=== PATIENT | female | born 1985 | race Caucasian/White ===

== ENCOUNTER 2020-07-26 09:11 | Outpatient (REF) | payer MEDICARE, MEDICAID, SELFPAY | END 2020-07-26 09:12 | disposition home or self-care (01) | LOC: HO.HAP 09:11 | PROVIDERS: Visit Provider Internal Medicine | DX: Z46.1 Encounter for fitting and adjustment of hearing aid (principal) | CPT/HCPCS: V5266 ==

== ENCOUNTER 2020-10-08 12:13 | Outpatient (REF) | payer MEDICAID, SELFPAY | END 2020-10-08 12:14 | disposition home or self-care (01) | LOC: HO.HAP 12:13 | PROVIDERS: Visit Provider Internal Medicine | DX: H90.3 Sensorineural hearing loss, bilateral (principal) | CPT/HCPCS: 99499 ==

== ENCOUNTER 2020-10-09 07:08 | Outpatient (REF) | payer MEDICARE, MEDICAID, SELFPAY ==
[2020-10-09 08:17] LABS: MANUAL DIFF FLAG NO
[2020-10-09 08:20] LABS: Basophils Percent Auto 1.1 % (0-2); Eosinophils Percent Auto 0.8 % (0-4); Hematocrit 40.9 % (37-47); Hemoglobin 13.8 g/dl (12.0-16.0); Imm Gran Abs Auto 0.01 X10*3/uL (0.00-0.03); Imm Gran Pct Auto 0.3 % (0.0-0.4); Lymphocytes Absolute Auto 1.5 X10*3/uL (1.2-4.9); Mean Corpuscular HGB Conc 33.7 g/dl (31.0-35.0); Mean Corpuscular Hemoglobin 34.2 pg (27.0-33.0); Mean Corpuscular Volume 101.5 fL (80-98); Mean Platelet Volume 9.4 fL (9.4-12.3); Monocytes Absolute Auto 0.3 X10*3/uL (0.1-1.2); Monocytes Percent Auto 7.7 % (2-11); Neutrophils Absolute Auto 1.8 X10*3/uL (2.0-8.3); Neutrophils Percent Auto 50.1 % (45-73); Platelet Count 226 X10*3/uL (160-400); Red Blood Count 4.03 X10*6/uL (4.20-5.50); Red Cell Distribution Width 12.2 % (11.0-16.0); White Blood Count 3.7 X10*3/uL (4.8-10.8)
[2020-10-09 08:54] LABS: Alanine Aminotransferase 16 U/L (0-31); Albumin Level 4.4 g/dL (3.5-5.0); Alkaline Phosphatase 50 U/L (39-117); Anion Gap 11 (12-20); Aspartate Amino Transferase 20 U/L (5-31); Bilirubin Total 0.5 mg/dL (0.0-1.0); Blood Urea Nitrogen 14 mg/dL (9-16); Calcium 9.1 mg/dL (8.4-10.2); Carbon Dioxide 30 mmol/L (22-29); Chloride 106 mmol/L (96-108); Cholesterol 190 mg/dL; Estimated Glomerular Filt Rate 60; Glucose Fasting 95 mg/dL (60-99); HDL Cholesterol 72 mg/dL; LDL Cholesterol Calculated 108 mg/dl; Potassium 5.1 mmol/l (3.3-5.1); Sodium 142 mmol/L (135-145); Total Protein 7.2 g/dL (6.5-8.0); Triglycerides 50 mg/dL
[2020-10-09 09:14] LABS: Vitamin D 25-OH Total 24.1 ng/mL (>30)
[2020-10-13 09:12] LABS: Levetiracetam Keppra 12.5 mcg/mL (12.0-46.0)
== END 2020-10-09 07:09 | disposition home or self-care (01) ==
LOC: HO.LAB 07:08
PROVIDERS: Absent Provider Internal Medicine Endocrinology, Diabetes & Metabolism; PCP Internal Medicine; Visit Provider Internal Medicine
DX: G40.909 Epilepsy, unspecified, not intractable, without status epilepticus (principal); E55.9 Vitamin D deficiency, unspecified; E03.9 Hypothyroidism, unspecified; Z82.49 Family history of ischemic heart disease and other diseases of the circulatory system
CPT/HCPCS: 36415; 80053; 80061; 80177; 82306; 85025

== ENCOUNTER 2020-11-09 14:34 | Outpatient (REF) | payer MEDICARE, MEDICAID, SELFPAY | END 2020-11-09 14:35 | disposition home or self-care (01) | LOC: HO.HAP 14:34 | PROVIDERS: Visit Provider Internal Medicine | DX: Z46.1 Encounter for fitting and adjustment of hearing aid (principal) | CPT/HCPCS: V5266 ==

== ENCOUNTER 2020-12-04 09:18 | Outpatient (REF) | payer MEDICARE, MEDICAID, SELFPAY ==
--- NOTE | 2020-12-05 10:50 | MHC.AU.P13 ---
Adult Audiological Evaluation Date of Visit: 12/04/20 Reason for Appointment: Audiological evaluation to monitor the status of Ms. Matos's hearing loss. She has a longstanding history of mixed hearing loss and hearing aid use. She denies any significant changes to her hearing or medical history. Due to the age of her current hearing aids, she is due for updated amplification. Previous Hearing Test Results: [facility] [place]- Mild to moderate mixed hearing loss bilaterally. Medical History: Medical History: Down Syndrome Hearing Instrument History- Right Ear: Level Vial Setter: Oticon Model: Nera 2 Pro mini BTE Serial Number: [id number] Battery Size: 312 Repair Warranty: 08/10/2017 Loss and Damage Warranty: 08/10/2017 Dispensed By: [facility] Date of Fittin07/31/2015 Hearing Instrument History- Left Ear: Level Vial Setter: Oticon Model: Nera 2 Pro mini BTE Serial Number: [id number] Battery Size: 312 Warranty: 08/10/2017 Loss and Damage Warranty: 08/10/2017 Dispensed By: [facility] Date of Fittin07/31/2015 Otoscopy: Right Ear: Unremarkable Left Ear: Unremarkable Tympanometry: Tympanometry performed due to: History of middle ear dysfunction Right Ear: Normal Middle Ear System (Type A) Left Ear: Non-compliant Middle Ear System (Type B) Hearing Evaluation: Transducer(s) Used: Insert Earphones, Bone Conduction Method: Conventional Audiometry Stimuli Used: Pure Tones Right Ear: Description of Hearing: Moderate mixed hearing loss 250-1000 Hz, moderate sensorineural hearing loss 5955-7370 Hz, rising to mild sensorineural hearing loss 5332-2688 Hz, and a moderate hearing loss at 8000 Hz. Left Ear: Description of Hearing: Moderate mixed hearing loss 250-1000 Hz, moderate sensorineural hearing loss 9683-7257 Hz, moderate mixed hearing loss at 5461-0257 Hz, and a moderately severe hearing loss at 8000 Hz. Speech Recognition Threshold (SRT): Method Used: Monitored Live Voice Stimuli Used: Spondee Words Right Ear: 45 dBHL Left Ear: 45 dBHL Word Discrimination: Method: Recorded Lists Word Lists Used: NU-6 Right Ear: 96% at 85 dBHL Left Ear: 96% at 85 dBHL Comparison: Compared to the most recent evaluation: Hearing is stable. Recommendations: Audiological re-evaluation in one year. See Hearing Aid Evaluation report for more information. Trial with updated amplification is recommended. Requesting medical clearance for hearing aid use from her PCP. Once received aids will be ordered. Diagnosis: Primary Diagnosis: H90.3 Bilateral Sensorineural Hearing Loss Services Performed: Comprehensive Audiological Evaluation (CPT 86441) Tympanometry (CPT 64607) Signature: Provider: Arpita Fontanez, CCC-A
--- NOTE | 2020-12-05 10:51 | MHC.AU.MED ---
Medical Clearance for Hearing Instrumentation Date: 12/05/20 Patient Name: Lisa Matos Date of : 1985 Referring Provider: Gaviota Kenny MD We have seen your patient on 12/05/20 and have determined that they are a candidate for amplification (See accompanying report). Specifically, they would benefit from: Hearing aid use in both ears There is a statute that addresses Medical Evaluation Requirements prior to fitting a patient with a hearing aid. According to [place] statute 265 CMR:6.03(1), (a) General. Except as provided in 265 CMR 6.03(1)(b), a workers compensation claims specialist shall not sell a hearing aid unless the prospective user has presented to the workers compensation claims specialist a written statement signed by a licensed physician that states that the patient's hearing loss has been medically evaluated and the patient may be considered a candidate for a hearing aid. The medical evaluation must have taken place within the preceding six months. Please note: Due to the [place] Statute referenced above, we cannot accept a signature other than that of a licensed physician. HADOOP ADMINISTRATOR and PA signatures cannot be accepted. I am in agreement with the above recommendation. There is no medical contraindication for hearing instrumentation. Physician Signature Date Physician Name (Printed)
--- NOTE | 2020-12-05 11:46 | MHC.AU.P13 ---
Hearing Aid Evaluation- Binaural Date of Visit: 12/05/20 Description of Hearing: Moderate mixed hearing loss bilaterally. Current Hearing Instrument Information: 2015 Oticon Nera 2 Pro miniBTE Additional Information: Given the age of her current hearing aids, Ms. Matos is due for updated amplification. Binaural hearing aids are recommended to facilitate improved communication. She would benefit from the Bluetooth capabilities in new hearing aids as she has been attending her community program via zoom meetings on a tablet. Hearing Instrument Selection: Right Ear: Surveillance Monitor: Phonak Model: Gregor M70-M Battery Size: 312 Color: Q2 Electric Green Type of Mold: Microsonic Skeleton molds Left Ear: Surveillance Monitor: Phonak Model: Gregor M70-M Battery Size: 312 Color: Q2 Electric Green Type of Mold: Microsonic Skeleton Plan: Plan of Care for Hearing Instrument Fitting: Patient wishes to purchase hearing aids as prescribed Action Taken/Action Needed: Earmold Impressions Taken. Medical Clearance to be requested from PCP/ENT. Hearing Fitting to be scheduled when materials arrive Comments: Aids will be ordered once MD clearance is received. Diagnosis Code(s): Primary Diagnosis: H90.3 Bilateral Sensorineural Hearing Loss Signature: Provider: Arpita Fontanez, CCC-A
== END 2020-12-04 09:19 | disposition home or self-care (01) ==
LOC: HO.SH 09:18
PROVIDERS: Visit Provider Internal Medicine
DX: Z46.1 Encounter for fitting and adjustment of hearing aid (principal); H90.3 Sensorineural hearing loss, bilateral
CPT/HCPCS: 92557; 92567; 92591; 92593; 99499; V5275

== ENCOUNTER 2020-12-11 10:29 | Outpatient (REF) | payer MEDICARE, MEDICAID, SELFPAY ==
[2020-12-11 12:26] LABS: Basophils Absolute Auto 0.1 X10*3/uL (0.0-0.2); Eosinophils Percent Auto 0.4 % (0-4); Hematocrit 39.6 % (37-47); Hemoglobin 13.3 g/dl (12.0-16.0); Imm Gran Abs Auto 0.01 X10*3/uL (0.00-0.03); Imm Gran Pct Auto 0.4 % (0.0-0.4); Lymphocytes Percent Auto 41.1 % (20-40); MANUAL DIFF FLAG SCAN; Mean Corpuscular HGB Conc 33.6 g/dl (31.0-35.0); Mean Corpuscular Volume 101.3 fL (80-98); Mean Platelet Volume 9.4 fL (9.4-12.3); Monocytes Absolute Auto 0.3 X10*3/uL (0.1-1.2); Monocytes Percent Auto 11.8 % (2-11); Neutrophils Absolute Auto 1.1 X10*3/uL (2.0-8.3); Neutrophils Percent Auto 44.3 % (45-73); Platelet Count 234 X10*3/uL (160-400); Red Blood Count 3.91 X10*6/uL (4.20-5.50); Red Cell Distribution Width 13.3 % (11.0-16.0); SCAN SMEAR FLAG 1
[2020-12-11 12:33] LABS: White Blood Count 2.5 X10*3/uL (4.8-10.8)
[2020-12-11 12:55] LABS: SLIDE REVIEW VERIFIED
[2020-12-11 13:33] LABS: Folate 16.2 ng/mL (> or = 4.0); Vitamin B12 405 pg/mL (200-900)
== END 2020-12-11 10:30 | disposition home or self-care (01) ==
LOC: HO.10HDL 10:29
PROVIDERS: Visit Provider Internal Medicine
DX: D72.819 Decreased white blood cell count, unspecified (principal); R71.8 Other abnormality of red blood cells
CPT/HCPCS: 36415; 82607; 82746; 85025; 85060

== ENCOUNTER → 2020-12-26 14:17 | Outpatient (BNV) | payer MEDICARE, MEDICAID, SELFPAY | PROVIDERS: PCP Internal Medicine; Referring Provider Internal Medicine; Visit Provider Internal Medicine | DX: D72.819 Decreased white blood cell count, unspecified (principal); Q90.9 Down syndrome, unspecified | CPT/HCPCS: 99203; 99213; 99214 ==

== ENCOUNTER 2021-01-02 09:22 | Outpatient (REF) | payer MEDICARE, MEDICAID, SELFPAY | END 2021-01-02 09:23 | disposition home or self-care (01) | LOC: HO.HAP 09:22 | PROVIDERS: Visit Provider Internal Medicine | DX: Z46.1 Encounter for fitting and adjustment of hearing aid (principal); H90.6 Mixed conductive and sensorineural hearing loss, bilateral | CPT/HCPCS: V5011; V5020; V5160; V5261; V5264; V5266 ==

== ENCOUNTER 2021-01-17 15:12 | Outpatient (REF) | payer MEDICARE, MEDICAID, SELFPAY | END 2021-01-17 15:13 | disposition home or self-care (01) | LOC: HO.HAP 15:12 | PROVIDERS: Visit Provider Internal Medicine | DX: Z13.89 Encounter for screening for other disorder (principal) ==

== ENCOUNTER 2021-04-15 13:24 | Outpatient (REF) | payer MEDICARE, MEDICAID, SELFPAY | END 2021-04-15 13:25 | disposition home or self-care (01) | LOC: HO.HAP 13:24 | PROVIDERS: Visit Provider Internal Medicine | DX: Z46.1 Encounter for fitting and adjustment of hearing aid (principal); H90.3 Sensorineural hearing loss, bilateral | CPT/HCPCS: V5266 ==

== ENCOUNTER 2021-06-06 14:14 | Outpatient (REF) | payer SELFPAY | END 2021-06-06 14:15 | disposition home or self-care (01) | LOC: HO.HAP 14:14 | PROVIDERS: Visit Provider Internal Medicine | DX: H90.3 Sensorineural hearing loss, bilateral (principal) | CPT/HCPCS: 92700 ==

== ENCOUNTER 2021-07-01 07:48 | Outpatient (REF) | payer MEDICARE, SELFPAY ==
[2021-07-01 11:09] LABS: Alanine Aminotransferase 15 U/L (0-31); Albumin Level 4.3 g/dL (3.5-5.0); Alkaline Phosphatase 51 U/L (39-117); Anion Gap 12 (12-20); Aspartate Amino Transferase 17 U/L (5-31); Bilirubin Total 0.9 mg/dL (0.0-1.0); Blood Urea Nitrogen 15 mg/dL (9-16); Calcium 9.7 mg/dL (8.4-10.2); Carbon Dioxide 28 mmol/L (22-29); Chloride 105 mmol/L (96-108); Estimated Glomerular Filt Rate 55; Glucose Fasting 95 mg/dL (60-99); Potassium 4.5 mmol/L (3.3-5.1); Sodium 140 mmol/L (135-145); Total Protein 7.4 g/dL (6.5-8.0)
[2021-07-05 19:01] LABS: Levetiracetam Keppra 12.9 mcg/mL (12.0-46.0)
[2021-07-06 13:12] LABS: Vitamin D 25-OH, D2 <4 ng/mL; Vitamin D 25-OH, D3 48 ng/mL; Vitamin D 25-OH, Total 48 ng/mL (30-100)
== END 2021-07-01 07:49 | disposition home or self-care (01) ==
LOC: HO.10HDL 07:48
PROVIDERS: Visit Provider Internal Medicine
DX: R56.9 Unspecified convulsions (principal); E06.3 Autoimmune thyroiditis; E55.9 Vitamin D deficiency, unspecified
CPT/HCPCS: 36415; 80053; 80177; 82306; 84443

== ENCOUNTER 2021-07-03 12:07 | Outpatient (REF) | payer MEDICARE, MEDICAID, SELFPAY ==
--- NOTE | 2021-07-03 13:27 | MHC.AU.P13 ---
Hearing Instrument Problem Date of Visit: 07/03/21 Right Ear: Metal Control Worker: Phonak Model: Gregor M70-M Serial Number: [id number] Repair Warranty: 03/12/2026 Loss and Damage Warranty: 03/12/2026 Service Plan: Battery Size: 312 Color: Q2 Electric Green Adjunct Business Instructor: Tubin T double bend Type of Dome: Type of Mold: Microsonic Skeleton molds Type of Wax Guard: Dispensed By: [facility] Date of Fittin01/02/21 Left Ear: Metal Control Worker: Phonak Model: Gregor M70-M Serial Number: [id number] Repair Warranty: 03/12/2026 Loss and Damage Warranty: 03/12/2026 Service Plan: Battery Size: 312 Color: Q2 Electric Green Adjunct Business Instructor: Tubin T double bend Type of Dome: Type of Mold: Microsonic Skeleton Type of Wax Guard: Dispensed By: [facility] Date of Fittin01/02/2021 Summary: Patient dropped off older right Oticon hearing aid - not working - wax in tubing. XIAO cleaned and tubing changed - now amplifying clearly. Diagnosis Code(s): Primary Diagnosis: H90.6 Mixed Hearing Loss, Bilateral Signature: Provider: RISHI Bowden-HIS
== END 2021-07-03 12:08 | disposition home or self-care (01) ==
LOC: HO.HAP 12:07
PROVIDERS: Visit Provider Internal Medicine
DX: Z13.89 Encounter for screening for other disorder (principal)

== ENCOUNTER 2021-07-04 15:50 | Outpatient (REF) | payer MEDICARE, MEDICAID, SELFPAY | END 2021-07-04 15:51 | disposition home or self-care (01) | LOC: HO.HAP 15:50 | PROVIDERS: Visit Provider Internal Medicine | DX: Z13.89 Encounter for screening for other disorder (principal) ==

== ENCOUNTER 2021-09-30 13:40 | Outpatient (REF) | payer MEDICARE, MEDICAID, SELFPAY | END 2021-09-30 13:41 | disposition home or self-care (01) | LOC: HO.HAP 13:40 | PROVIDERS: Visit Provider Internal Medicine | DX: Z46.1 Encounter for fitting and adjustment of hearing aid (principal); H90.6 Mixed conductive and sensorineural hearing loss, bilateral | CPT/HCPCS: V5266 ==

== ENCOUNTER 2021-10-09 13:25 | Outpatient (REF) | payer MEDICARE, MEDICAID, SELFPAY | END 2021-10-09 13:26 | disposition home or self-care (01) | LOC: HO.HAP 13:25 | PROVIDERS: Visit Provider Internal Medicine | DX: Z13.89 Encounter for screening for other disorder (principal) ==

== ENCOUNTER 2021-10-29 12:24 | Outpatient (REF) | payer MEDICARE, MEDICAID, SELFPAY | END 2021-10-29 12:25 | disposition home or self-care (01) | LOC: HO.HAP 12:24 | PROVIDERS: Visit Provider Internal Medicine | DX: Z13.89 Encounter for screening for other disorder (principal) ==

== ENCOUNTER 2021-12-11 16:00 | Outpatient (REF) | payer MEDICARE, MEDICAID, SELFPAY | END 2021-12-11 16:01 | disposition home or self-care (01) | LOC: HO.HAP 16:00 | PROVIDERS: Visit Provider Internal Medicine | DX: Z46.1 Encounter for fitting and adjustment of hearing aid (principal); H90.3 Sensorineural hearing loss, bilateral | CPT/HCPCS: V5266 ==

== ENCOUNTER 2022-01-30 08:28 | Outpatient (REF) | payer MEDICARE, MEDICAID, SELFPAY ==
--- NOTE | 2022-01-31 07:54 | MHC.AU.AHA ---
Adult Audiological Evaluation Date of Visit: 01/30/22 Reason for Appointment: Long-standing history of hearing loss and middle ear dysfunction. Patient arrives today to determine if there has been a change in hearing. Previous Hearing Test Results: At this clinic on 11/29/2019- Overall moderate mixed hearing loss bilaterally Ear History: Recent Ear Pain: None Reported Family History of Hearing Loss?: Recent Ear Infections: None Reported History of Ear Wax Buildup: Both Ears Previous Ear Surgery: PE tubes, TM repair Medical History: Medical History: Down Syndrome Hearing Instrument History- Right Ear: Electronic Gluing Machine Operator: Phonak Model: Gregor M70-M Serial Number: [id number] Battery Size: 312 Repair Warranty: 03/12/2026 Loss and Damage Warranty: 03/12/2026 Dispensed By: [facility] Date of Fittin01/02/21 Hearing Instrument History- Left Ear: Electronic Gluing Machine Operator: SimGymak Model: Gregor M70-M Serial Number: [id number] Battery Size: 312 Warranty: 03/12/2026 Loss and Damage Warranty: 03/12/2026 Dispensed By: [facility] Date of Fittin01/02/2021 Otoscopy: Right Ear: Partially occluded with cerumen Left Ear: Partially occluded with cerumen Tympanometry: Tympanometry performed due to: History of middle ear dysfunction Right Ear: Normal Middle Ear System (Type A) Left Ear: Non-compliant Middle Ear System (Type B) Hearing Evaluation: Transducer(s) Used: Insert Earphones Method: Conventional Audiometry Stimuli Used: Pure Tones Right Ear: Description of Hearing: Moderate mixed hearing loss bilaterally Left Ear: Description of Hearing: Moderate mixed hearing loss bilaterally Speech Recognition Threshold (SRT): Method Used: Recorded Lists Stimuli Used: Spondee Words Right Ear: 45 dBHL Left Ear: 45 dBHL Word Discrimination: Method: Recorded Lists Word Lists Used: W-22 Right Ear: 100% at 85 dBHL Left Ear: 100% at 85 dBHL Most Comfortable Level (MCL): Right Ear: 85 dBHL Left Ear: 85 dBHL Comparison: Compared to the most recent evaluation: Hearing is stable. Recommendations: Audiological re-evaluation in one year. Hearing aid maintenance performed today. See Hearing Aid Follow-Up note for more information. Diagnosis: Primary Diagnosis: H90.6 Mixed Hearing Loss, Bilateral Signature: Provider: Arpita Fernando CCC-A
--- NOTE | 2022-01-31 07:55 | MHC.AU.HFU ---
Hearing Instrument Follow-Up- Binaural Date of Visit: 01/30/22 Right Ear: Inside Account Executive: Phonak Model: Gregor M70-M Serial Number: [id number] Repair Warranty: 03/12/2026 Loss and Damage Warranty: 03/12/2026 Battery Size: 312 Dispensed By: [facility] Date of Fittin01/02/21 Left Ear: Inside Account Executive: Phonak Model: Gregor M70-M Serial Number: [id number] Repair Warranty: 03/12/2026 Loss and Damage Warranty: 03/12/2026 Battery Size: 312 Dispensed By: [facility] Date of Fittin01/02/2021 Follow-Up Summary: Patient was seen for audiological re-evaluation (see separate report for details). Her current and previous 2 sets of hearing aids were cleaned. Molds were retubed. All hearing aids are amplifying clearly. No programming changes were necessary today. Recommendations: Hearing instrument follow-up or maintenance as needed. Diagnosis Code(s): Primary Diagnosis: H90.6 Mixed Hearing Loss, Bilateral Signature: Provider: Arpita Fernando, [facility]
== END 2022-01-30 08:29 | disposition home or self-care (01) ==
LOC: HO.SH 08:28
PROVIDERS: Visit Provider Internal Medicine
DX: Z01.118 Encounter for examination of ears and hearing with other abnormal findings (principal); Z46.1 Encounter for fitting and adjustment of hearing aid; H90.3 Sensorineural hearing loss, bilateral; H61.23 Impacted cerumen, bilateral
CPT/HCPCS: 92557; 92567; 92593

== ENCOUNTER 2022-02-27 14:42 | Outpatient (REF) | payer MEDICARE, MEDICAID, SELFPAY | END 2022-02-27 14:43 | disposition home or self-care (01) | LOC: HO.HAP 14:42 | PROVIDERS: Visit Provider Internal Medicine | DX: Z46.1 Encounter for fitting and adjustment of hearing aid (principal); H90.6 Mixed conductive and sensorineural hearing loss, bilateral | CPT/HCPCS: V5266 ==

== ENCOUNTER 2022-05-12 15:16 | Outpatient (REF) | payer MEDICARE, MEDICAID, SELFPAY | END 2022-05-12 15:17 | disposition home or self-care (01) | LOC: HO.HAP 15:16 | PROVIDERS: Visit Provider Internal Medicine | DX: Z46.1 Encounter for fitting and adjustment of hearing aid (principal); H90.6 Mixed conductive and sensorineural hearing loss, bilateral | CPT/HCPCS: V5266 ==

== ENCOUNTER 2022-06-25 07:38 | Outpatient (REF) | payer MEDICARE, MEDICAID, SELFPAY ==
[2022-06-25 10:34] LABS: MANUAL DIFF FLAG NO
[2022-06-25 10:51] LABS: Basophils Absolute Auto 0.1 X10*3/uL (0.0-0.2); Basophils Percent Auto 1.9 % (0-2); Eosinophils Percent Auto 1.3 % (0-4); Hematocrit 41.1 % (37.0-47.0); Hemoglobin 13.8 g/dl (12.0-16.0); Imm Gran Abs Auto 0.02 X10*3/uL (0.00-0.03); Imm Gran Pct Auto 0.6 % (0.0-0.4); Lymphocytes Absolute Auto 1.4 X10*3/uL (1.2-4.9); Lymphocytes Percent Auto 45.1 % (20-40); Mean Corpuscular HGB Conc 33.6 g/dl (31.0-35.0); Mean Corpuscular Hemoglobin 34.2 pg (27.0-33.0); Mean Platelet Volume 9.2 fL (9.4-12.3); Monocytes Absolute Auto 0.3 X10*3/uL (0.1-1.2); Neutrophils Absolute Auto 1.2 x10*3/uL (2.0-8.3); Neutrophils Percent Auto 40.1 % (45-73); Platelet Count 250 X10*3/uL (160-400); Red Blood Count 4.03 X10*6/uL (4.20-5.50); Red Cell Distribution Width 13.1 % (11.0-16.0); White Blood Count 3.1 X10*3/uL (4.8-10.8)
[2022-06-25 11:21] LABS: Thyroid Stimulating Hormone 3.45 uIU/mL (0.32-4.0)
[2022-07-02 18:02] LABS: Levetiracetam Keppra 17.3 mcg/mL (6.0-46.0)
[2022-07-03 14:37] LABS: Vitamin D 25-OH, D2 <4 ng/mL; Vitamin D 25-OH, D3 63 ng/mL; Vitamin D 25-OH, Total 63 ng/mL (30-100)
== END 2022-06-25 07:39 | disposition home or self-care (01) ==
LOC: HO.10HDL 07:38
PROVIDERS: Absent Provider Internal Medicine Endocrinology, Diabetes & Metabolism; Visit Provider Internal Medicine
DX: R56.9 Unspecified convulsions (principal); D64.9 Anemia, unspecified; E55.9 Vitamin D deficiency, unspecified; E06.3 Autoimmune thyroiditis; E03.9 Hypothyroidism, unspecified
CPT/HCPCS: 36415; 80177; 82306; 84443; 85025

== ENCOUNTER 2022-07-29 09:29 | Outpatient (REF) | payer MEDICARE, MEDICAID, SELFPAY | END 2022-07-29 09:30 | disposition home or self-care (01) | LOC: HO.HAP 09:29 | PROVIDERS: Visit Provider Internal Medicine | DX: Z46.1 Encounter for fitting and adjustment of hearing aid (principal); H90.3 Sensorineural hearing loss, bilateral; H61.23 Impacted cerumen, bilateral | CPT/HCPCS: 92593 ==

== ENCOUNTER 2022-10-07 11:10 | Outpatient (REF) | payer MEDICARE, MEDICAID, SELFPAY | END 2022-10-07 11:11 | disposition home or self-care (01) | LOC: HO.HAP 11:10 | PROVIDERS: Visit Provider Internal Medicine | DX: Z46.1 Encounter for fitting and adjustment of hearing aid (principal); H90.3 Sensorineural hearing loss, bilateral; H61.23 Impacted cerumen, bilateral | CPT/HCPCS: V5266 ==

== ENCOUNTER 2023-01-06 10:06 | Outpatient (REF) | payer MEDICARE, MEDICAID, SELFPAY | END 2023-01-06 10:07 | disposition home or self-care (01) | LOC: HO.HAP 10:06 | PROVIDERS: Visit Provider Internal Medicine | DX: Z46.1 Encounter for fitting and adjustment of hearing aid (principal); H90.3 Sensorineural hearing loss, bilateral; H61.23 Impacted cerumen, bilateral | CPT/HCPCS: V5266 ==

== ENCOUNTER → 2023-01-27 14:06 | Outpatient (BNVA) | payer MEDICARE, MEDICAID, SELFPAY | PROVIDERS: PCP Internal Medicine; Visit Provider Advanced Practice Midwife | DX: Z01.419 Encounter for gynecological examination (general) (routine) without abnormal findings (principal); R10.9 Unspecified abdominal pain; R11.10 Vomiting, unspecified; R19.7 Diarrhea, unspecified | CPT/HCPCS: 99212 ==

== ENCOUNTER 2023-06-30 11:37 | Outpatient (REF) | payer MEDICARE, MEDICAID, SELFPAY | END 2023-06-30 11:38 | disposition home or self-care (01) | LOC: HO.HAP 11:37 | PROVIDERS: Visit Provider Internal Medicine | DX: Z46.1 Encounter for fitting and adjustment of hearing aid (principal); H90.3 Sensorineural hearing loss, bilateral; H61.23 Impacted cerumen, bilateral | CPT/HCPCS: V5266 ==

== ENCOUNTER 2023-07-07 07:48 | Outpatient (AMB) | payer MEDICARE, MEDICAID, SELFPAY ==
[2023-07-07 07:57] VITALS: BP 102/60; BMI 20.8
--- NOTE | 2023-07-07 07:57 | MHC.PC.OV ---
Vital Signs 07/07/23 07:57 Height 4 ft 10 in Weight 99 lb 6 oz BMI 20.8 BP 102/60 Blood Pressure Location Rt brachial Position Sitting Intake Visit Reasons: leukopenia, thyroid Intake Note: Patient here for a follow up Leukopenia, thyroid Valet Service Attendant Required: No Accompanied by: Mother Allergies No Known Allergies Allergy (Verified 07/07/23 08:07) Medication List - Last Reconciled 07/07/23 by Gaviota Kenny MD calcium carbonate (Tums) 200 mg PO BID cholecalciferol (vitamin D3) 25 mcg PO DAILY 90 days levetiracetam 250 mg PO DIRECTED levothyroxine 75 mcg PO DAILY omega-3 fatty acids (Fish Oil Concentrate) 1,000 mg PO DAILY varenicline (Tyrvaya) 1 spray intranasal BID Tobacco use date assessed: 02/04/23 Dental Screening Dental Screen Date: 07/07/23 Did you have a dental visit in the last 12 months?: Yes Did you have a dental problem in the last 6 months where you did not have access to dental care?: No Was dental information given to patient?: Patient has dentist HPI HPI Comments History of Present Illness Details This is a 38-year-old female with Down syndrome, seizures, autoimmune thyroiditis and low vitamin-D that comes accompanied by mother for follow-up on her conditions. Seizures are follow by Neurology and Keppra was decreased due to leukopenia. Has not had a seizure in over a month. Thyroiditis is follow by Endocrinology. On vitamin-D supplements for low vitamin-D. Her leukopenia is follow by Hematology-Oncology and her last ANC was over a 1000. She has not had any opportunistic infection recently. No fever or cough. No chest pain or shortness of breath. She is very active. [facility] Medical History Hypovitaminosis D Leukopenia Down syndrome Autoimmune thyroiditis Hearing loss Seizures Surgical History History of placement of ear tubes History of ear surgery Family History Father Melanoma Mother Hyperthyroidism Maternal Grandfather Diabetes CVD (cardiovascular disease) Brother In good health Social History Household Members: Family Household Members Other:: lives w/her mom Housing: House Alcohol intake: never Patient Tobacco Use Status: Never used Tobacco e-Cigarette/Vaping Use: Never Used Second Hand Smoke Exposure: No service: No Current occupational status: employed Current occupational exposures/hazards: No Cognitive needs: No Hearing needs: No Vision needs: Yes Questionnaire Thrive Questionnaire Date Thrive assessed: 11/05/22 JAGRUTI-7 AMB Questionnaire JAGRUTI-7 Date JAGRUTI - 7 assessed: 11/05/22 Source: Developed by Drs. Dustin Bassett, Bette Garcia, Noe Ayala and colleagues, with an educational bree from [employer]. Review of Systems Const All systems reviewed & are unremarkable except as noted in HPI and below Eyes Reports no additional complaints, Denies change in vision and Denies other visual disturbances Card Denies chest pain at rest, Denies chest pain with activity, Denies edema, Denies irregular heart rhythm, Denies claudication, Denies dyspnea, Denies dyspnea on exertion, Denies orthopnea, Denies paroxysmal nocturnal dyspnea and Denies slow heart rate Resp Denies cough, Denies dyspnea and Denies dyspnea on exertion GI Denies abdominal pain, Denies change in bowel habits, Denies excessive flatus, Denies nausea and Denies vomiting Denies urinary incontinence, Denies urinary hesitancy and Denies urinary urgency Musc Denies abnormal gait, Denies atrophy, Denies deformity and Denies limited range of motion Skin/Breast Denies bleeding lesions, Denies changing lesions and Denies rash Neuro Denies abnormal gait and Denies lack of coordination Physical exam (Primary Care) Vital Signs: Last Vital Signs BP 102/60 07/07/23 07:57 BMI result Body Mass Index 20.8 Tobacco/Smoking Status: Tobacco use Status Tobacco use date assessed 02/04/23 07/07/23 07:58 Patient Tobacco Use Status Never used Tobacco 07/07/23 07:58 e-Cigarette/Vaping Use Never Used 07/07/23 07:58 Thrive Assessment: Date of Thrive Assessment Date Thrive assessed 11/05/22 07/07/23 07:58 Eyes General: appearance normal, both eyes and all related structures Eyelids: Yes eyelids normal Conjunctivae: conjunctivae normal Neck Neck: Yes normal visual inspection and Yes supple Resp Effort & Inspection: normal respiratory effort Auscultation: clear to auscultation bilaterally Cardio Jugular venous distension: no JVD Rate: regular rate Rhythm: regular rhythm Heart sounds: S1 normal heart sound present and S2 normal heart sound present Extrem General: Yes full ROM Assessment and Plan Assessment & Plan (1) Seizures: Code(s): R56.9 - Unspecified convulsions Plan: Continue Keppra. Follow-up with Neurology. (2) Autoimmune thyroiditis: Code(s): E06.3 - Autoimmune thyroiditis Plan: Continue levothyroxine. Follow-up with endocrinology. (3) Leukopenia: Code(s): D72.819 - Decreased white blood cell count, unspecified Qualifiers: Leukopenia type: neutropenia Neutropenia type: other Qualified Code(s): D70.8 - Other neutropenia Plan: Follow-up with Hematology-Oncology. (4) Hypovitaminosis D: Code(s): E55.9 - Vitamin D deficiency, unspecified Plan: Continue vitamin-D supplement Coding Level of Care Code Est Pt Level 4 (30785) Diagnoses Seizures R56.9 Autoimmune thyroiditis E06.3 Other neutropenia D70.8 Leukopenia type: neutropenia Neutropenia type: other Hypovitaminosis D E55.9 Time Spent (min) 20
== END 2023-07-07 08:26 | disposition home or self-care (01) ==
PROVIDERS: Visit Provider Internal Medicine
DX: R56.9 Unspecified convulsions (principal); E06.3 Autoimmune thyroiditis; D70.8 Other neutropenia; E55.9 Vitamin D deficiency, unspecified
CPT/HCPCS: 99214

== ENCOUNTER 2023-07-21 13:12 | Outpatient (AMB) | payer MEDICARE, MEDICAID, SELFPAY ==
--- NOTE | 2023-07-21 13:19 | A.OFFVIS_ITS ---
Intake Vital Signs 07/21/23 13:20 Height 4 ft 10 in Weight 97 lb BMI 20.3 BP 100/60 Intake Visit Reasons: Pap smear/60 mins Intake Note: The patient agreed to use of a director medical safety during this encounter. Scribed for PUSHPA Spaulding by Lisandra Potter director medical safety, on 07/21/2023 at 1:49 pm EST. Anglesmith Helper: Anglesmith Helper Present (Sanna) Accompanied by: Mother Allergies No Known Allergies Allergy (Verified 07/07/23 08:07) HPI HPI Comments History of Present Illness Details She is here with her mom Mary for a pelvic exam and pap smear due to not being able to obtain at last visit due to her anxiety. Reports regular monthly menses. She took a Benadryl for her visit today to help her relax and remain calm. [facility] Medical History Visit for pelvic exam Hypovitaminosis D Leukopenia Down syndrome Autoimmune thyroiditis Hearing loss Seizures Surgical History History of placement of ear tubes History of ear surgery Family History Father Melanoma Mother Hyperthyroidism Maternal Grandfather Diabetes CVD (cardiovascular disease) Brother In good health Social History Household Members: Family Household Members Other:: lives w/her mom Housing: House Alcohol intake: never Patient Tobacco Use Status: Never used Tobacco e-Cigarette/Vaping Use: Never Used Second Hand Smoke Exposure: No service: No Current occupational status: employed Current occupational exposures/hazards: No Cognitive needs: No Hearing needs: No Vision needs: Yes Female Reproductive History Menstrual Total pregnancies: 0 Date of last pap smear: 12/30/16 (neg pap and hpv) Physical Exam Vital Signs: Last Vital Signs BP 100/60 07/21/23 13:20 BMI result Body Mass Index 20.3 Const Other: anxious, cried with the discussion of examination General: cooperative, healthy appearing, comfortable, no acute distress, well developed, alert and awake Other: very limited exam, pt. tensing legs/abdomen, limited view of cervix, bimanual not completed despite coaching and support, pt. not able to cooperate fully. External Female Exam: normal external appearance and normal appearance of the urethra Speculum Exam - Vagina: normal appearance of the vagina and normal vaginal discharge Speculum Exam - Cervix: normal appearance of the cervix (limited view of entire surface due to pt. pulling away ) Assessment & Plan Assessment & Plan (1) Visit for pelvic exam: Code(s): Z01.419 - Encounter for gynecological examination (general) (routine) without abnormal findings Plan: Discussed: Pap smear obtained. All of her questions and concerns were addressed to the best of my ability and shared decision making. She is agreeable to plan of care. Orders: Orders Pap Smear Today Z01.419 - Encounter for gynecological examination (general) (routine) without abnormal findings Coding Level of Care Code Est Pt Level 3 (37802) Diagnoses Visit for pelvic exam Z01.419
[2023-07-21 13:20] VITALS: BP 100/60; BMI 20.3
== END 2023-07-21 15:33 | disposition home or self-care (01) ==
PROVIDERS: Visit Provider Advanced Practice Midwife
DX: Z01.419 Encounter for gynecological examination (general) (routine) without abnormal findings (principal)
CPT/HCPCS: Q0091

== ENCOUNTER 2023-07-21 13:12 | Outpatient (REF) | payer MEDICARE, MEDICAID, SELFPAY ==
[2023-07-23 23:43] LABS: HPV mRNA E6/E7 rflx Not Detected (Not Detected)
== END 2023-07-21 13:13 | disposition home or self-care (01) ==
LOC: HO.LNP 13:12
PROVIDERS: Visit Provider Advanced Practice Midwife
DX: Z01.419 Encounter for gynecological examination (general) (routine) without abnormal findings (principal); F41.9 Anxiety disorder, unspecified
CPT/HCPCS: 87624; 88142

== ENCOUNTER 2023-07-22 14:41 | Outpatient (REF) | payer MEDICARE, MEDICAID, SELFPAY | END 2023-07-22 14:42 | disposition home or self-care (01) | LOC: HO.HAP 14:41 | PROVIDERS: Visit Provider Internal Medicine | DX: Z13.89 Encounter for screening for other disorder (principal) ==

== ENCOUNTER 2023-11-10 10:05 | Outpatient (REF) | payer MEDICARE, MEDICAID, SELFPAY | END 2023-11-10 10:06 | disposition home or self-care (01) | LOC: HO.HAP 10:05 | PROVIDERS: Visit Provider Internal Medicine | DX: Z46.1 Encounter for fitting and adjustment of hearing aid (principal); H90.3 Sensorineural hearing loss, bilateral; H61.23 Impacted cerumen, bilateral | CPT/HCPCS: V5266 ==

== ENCOUNTER 2023-12-22 14:56 | Outpatient (REF) | payer MEDICARE, MEDICAID, SELFPAY | END 2023-12-22 14:57 | disposition home or self-care (01) | LOC: HO.HAP 14:56 | PROVIDERS: Visit Provider Internal Medicine | DX: Z13.89 Encounter for screening for other disorder (principal) ==

== ENCOUNTER 2024-02-02 11:34 | Outpatient (REF) | payer MEDICARE, MEDICAID, SELFPAY | END 2024-02-02 11:35 | disposition home or self-care (01) | LOC: HO.HAP 11:34 | PROVIDERS: Visit Provider Internal Medicine | DX: Z13.89 Encounter for screening for other disorder (principal) ==

== ENCOUNTER 2024-02-09 07:35 | Outpatient (AMB) | payer MEDICARE, MEDICAID, SELFPAY ==
--- NOTE | 2024-02-09 07:45 | A.OFFVIS_ITS ---
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 Accompanied by: Mother Allergies No Known Allergies Allergy (Verified 02/09/24 07:52) Medication List - Last Reconciled 02/09/24 by Gaviota Kenny MD calcium carbonate (Tums) 200 mg PO BID cholecalciferol (vitamin D3) 25 mcg PO DAILY 90 days levetiracetam 250 mg PO DIRECTED levothyroxine 75 mcg PO DAILY omega-3 fatty acids (Fish Oil Concentrate) 1,000 mg PO DAILY varenicline (Tyrvaya) 1 spray intranasal BID Do you need a note to return to daycare/school/sports/work: No HPI HPI Comments History of Present Illness Details This is a 38-year-old female with Down syndrome and seizures that comes accompanied by mother which is the sandblast operator for her Medicare annual wellness exam. She has hearing aids for hearing loss. Has not had a seizure in years and is follow by Neurology. PPP handed to patient. Family history of coronary artery disease and lipid panel will be order. No chest pain or shortness of breath. No change in bowel or bladder habits. No fever or cough. Able to walk with no assistive device. [facility] Medical History (Updated 02/09/24 @ 08:24 by Gaviota Kenny MD) Visit for pelvic exam Hypovitaminosis D Leukopenia Down syndrome Autoimmune thyroiditis Hearing loss Seizures Surgical History History of placement of ear tubes History of ear surgery Family History Father Melanoma Mother Hyperthyroidism Maternal Grandfather Diabetes CVD (cardiovascular disease) Brother In good health Social History Household Members: Family Household Members Other:: lives w/her mom Housing: House Alcohol intake: never Patient Tobacco Use Status: Never used Tobacco e-Cigarette/Vaping Use: Never Used Second Hand Smoke Exposure: No service: No Current occupational status: employed Current occupational exposures/hazards: No Cognitive needs: No Hearing needs: No Vision needs: Yes Questionnaire Medicare Wellness Checkup What gender do you identify with?: female During the past 4 weeks, how much have you been bothered by emotional problems such as feeling anxious, depressed, irritable, sad or downhearted, and blue?: slightly During the past 4 weeks, has your physical & emotional health limited your social activities with family, friends, neighbors, or groups?: not at all During the past 4 weeks, how much bodily pain have you generally had?: very mild pain During the past 4 weeks, was someone available to help you if you needed & wanted help?: yes, as much as I wanted During the past 4 weeks, what was the hardest physical activity you could do for at least 2 minutes?: heavy Can you get to places out of walking distance without help? (For eg., can you travel alone on buses, taxis or drive your car?): Yes Can you go shopping for groceries or clothes without someone's help?: Yes Can you prepare your own meals?: Yes Can you do your housework without help?: Yes Because of any health problems, do you need the help of another person with your personal care needs such as eating, bathing, dressing or getting around the house?: No Can you handle your own money without help?: Yes During the past 4 weeks, how would you rate your health in general?: excellent During the past 4 weeks how have things been going for you?: very well; could hardly better Are you having difficulties driving your car?: not applicable, I don't use a car Do you always fasten your seat belt when you are in a car?: yes, usually During past 4 weeks, have you been bothered by the following: never: Sexual problems?, Trouble eating well?, Teeth or denture problems? and Problems using the telephone? and seldom: Falling or dizzy when standing up and Tiredness or fatigue? Have you fallen 2 or more times in the past year?: No Are you afraid of falling?: No Are you a smoker?: no During the past 4 weeks, how many drinks of wine, beer, or other alcoholic beverages did you have?: no alcohol at all Do you exercise for about 20 minutes 3 or more times a week?: yes, most of the time Have you been given information to help with the following?: yes: Hazards in your house that might hurt you? and yes: Keeping track of your medications? How often do you have trouble taking medicines the way you have been told to take them?: I always take medicine as prescribed How confident are you that you can control & manage most of your health problems?: very confident What is your race?: White Mini Mental State Exam (MMSE) Orientation What is the (year) (season) (date) (day) (month)?: year, season, date, day and month Where are we (state) (county) (town or city) (hospital) (floor)?: state, county, town or city, hospital/clinic and floor Registration Name of 3 unrelated objects clearly and slowly, then ask patient to repeat all 3 of them. (1st repeat determines score. Make sure they can repeat all three): object 1, object 2 and object 3 Attention & Calculation (CHOOSE ONE) Spell WORLD backwards (DLROW): 0 letters Recall Ask patient to repeat the 3 items from question #3.: object 1, object 2 and object 3 Language Show patient a wristwatch & ask what it is. Repeat for pencil.: watch and pencil Ask the patient to repeat the phrase 'No ifs, ands, or buts' after you.: correct Ask the patient to 'take a piece of paper with their right hand' 'fold paper in half' 'place paper on floor': take paper in right hand, fold paper in half and place paper on floor Print the sentence 'CLOSE YOUR EYES' on a piece. If patient actually closes eyes then score.: followed written direction Give patient a blank piece of paper & ask to write a sentence. Score if it contains a noun & verb.: sentence contains subject and verb Score Score: 24 Activity of Daily Living Bathing - sponge bath, tub bath or shower: receives no assistance (gets in/out by self, if usual bathing means Dressing - getting clothes from closets & drawers, including inner/outer garments & fasteners.: gets clothes & gets completely dressed without help Toileting - going to the 'toilet room' for urine/bowel elimination & cleaning self/arranging clothes: goes to toilet room, cleans self, arranges clothes without help Transfer: moves in & out of bed and chair without help (may use support object) Continence: controls urination/bowel movements completely by self Feeding: feeds self without help Total Score: 0 Information obtained from: patient Using telephone: independent Traveling: needs assistance Shopping: independent Preparing meals: independent Housework: independent Taking medicine: independent Managing money: needs assistance PHQ-9 Over the last 2 weeks, how often have you been bothered by any of the following problems? 1. Little interest or pleasure in doing things: not at all 2. Feeling down, depressed, or hopeless: not at all 3. Trouble falling or staying asleep, or sleeping too much: not at all 4. Feeling tired or having little energy: several days 5. Poor appetite or overeating: not at all 6. Feeling bad about yourself - or that you are a failure or have let yourself or your family down: not at all 7. Trouble concentrating on things, such as reading the newspaper or watching television: not at all 8. Moving or speaking so slowly that other people could have noticed. Or the opposite - being so fidgety or restless that you have been moving around a lot more than usual: not at all 9. Thoughts that you would be better off or of hurting yourself in some way: not at all Total score: 1 Depression Screening Interpretation: Negative Depression Screening Done: Yes 72532 - PHQ-9 Billing: Yes Source: Developed by Drs. Dustin Bassett, Bette Garcia, Noe Ayala and colleagues, with an educational bree from [employer]. AUDIT C Alcohol Use Questionnaire (AUDIT-C) 1. How often do you have a drink containing alcohol?: Never Total Score: 0 Thrive Questionnaire Date Thrive assessed: 02/09/24 I am a: Patient What is your living situation today?: I have a steady place to live Within the past 12 months, did the food you bought not last and you didn't have the money to get more?: Never true Within the past 12 months, did you worry whether your food would run out before you got money to buy more?: Never true Do you have trouble paying for medicines?: No Do you have trouble getting transportation to medical appointments?: No Do you have trouble paying your heating and electricity bill?: No Do you have trouble taking care of your child, family member or friend?: No Do you have trouble with day-to-day activities such as bathing, preparing meals, shopping, managing finances, etc.?: No Are you currently unemployed and looking for a job?: No Are you interested in more education?: No Please select the resources that you would like help with: None Currently or been in a relationship where the following occur: no concerns reported THRIVE Score: 0 JAGRUTI-7 AMB Questionnaire JAGRUTI-7 Date JAGRUTI - 7 assessed: 02/09/24 Feeling nervous, anxious, or on edge: 0 = Not at all Not being able to stop or control worryin = Not at all Worrying too much about different things: 0 = Not at all Trouble relaxin = Not at all Being so restless that it is hard to sit still: 0 = Not at all Becoming easily annoyed or irritable: 0 = Not at all Feeling afraid as if something awful might happen: 0 = Not at all Total JAGRUTI-7 score (0-4 normal; 5-9 mild; 10-14 moderate; 15-21 severe): 0 Source: Developed by Drs. Dustin Bassett, Bette Garcia, Noe Ayala and colleagues, with an educational bree from [employer]. JAGRUTI-7 Assessment Billing JAGRUTI-7 Assessment Tool: JAGRUTI-7 Assessment 82304 Review of Systems Const All systems reviewed & are unremarkable except as noted in HPI and below Card Denies chest pain at rest, Denies chest pain with activity, Denies edema, Denies irregular heart rhythm, Denies claudication, Denies dyspnea, Denies dyspnea on exertion, Denies orthopnea, Denies paroxysmal nocturnal dyspnea and Denies slow heart rate Resp Denies cough, Denies dyspnea and Denies dyspnea on exertion GI Denies abdominal pain, Denies change in bowel habits, Denies excessive flatus, Denies nausea and Denies vomiting Denies urinary incontinence, Denies urinary hesitancy and Denies urinary urgency Musc Denies abnormal gait, Denies atrophy, Denies deformity and Denies limited range of motion Neuro Denies abnormal gait, Denies behavioral changes and Denies lack of coordination Psych Denies behavioral changes Physical Exam Vital Signs: Last Vital Signs BP 102/60 02/09/24 07:49 BMI result Body Mass Index 20.0 Const Orientation/consciousness: patient oriented x3 Resp Effort & Inspection: normal respiratory effort Auscultation: clear to auscultation bilaterally Cardio Jugular venous distension: no JVD Rate: regular rate Rhythm: regular rhythm Heart sounds: S1 normal heart sound present and S2 normal heart sound present Neuro General: patient oriented x3 Romberg Test: Negative Extrem General: Yes full ROM Psych Appearance: grossly normal Assessment & Plan Assessment & Plan (1) Encounter for Medicare annual wellness exam: Code(s): Z00.00 - Encounter for general adult medical examination without abnormal findings Plan: Repeat in a year. (2) Seizures: Code(s): R56.9 - Unspecified convulsions Plan: Continue Keppra. Orders: Orders Lipid Panel Today Z82.49 - Family history of ischemic heart disease and other diseases of the circulatory system Comprehensive [place]. Panel Fast Today R56.9 - Unspecified convulsions Quality Reporting (2019) Depression/Bipolar (159/160/161/177) PHQ-9: Total score: 1 Coding Level of Care Code Medicare Subsequent (G0439) Diagnoses Encounter for Medicare annual wellness exam Z00.00 Seizures R56.9 CPT Codes Advance Care Planning - Time spent: 1-15 minutes, on File ([id number]) Additional Codes JAGRUTI-7 Assessment Billing - JAGRUTI-7 Assessment Tool: JAGRUTI-7 Assessment 71360 ([id number]) Time Spent (min) 35 Advance Care Planning Advance Care Planning discussion: Completed/Scanned Date of discussion: 02/09/24 Who was present: Mother, patient and me Forms completed: Health Care Proxy Time spent: 1-15 minutes, on File Actual minutes spent: 1
[2024-02-09 07:49] VITALS: BP 102/60
== END 2024-02-09 08:20 | disposition home or self-care (01) ==
PROVIDERS: Visit Provider Internal Medicine
DX: Z00.00 Encounter for general adult medical examination without abnormal findings (principal); R56.9 Unspecified convulsions
CPT/HCPCS: 1123F; G0439

== ENCOUNTER 2024-02-16 09:30 | Outpatient (REF) | payer MEDICARE, MEDICAID, SELFPAY ==
[2024-02-16 11:48] LABS: Alanine Aminotransferase 14 U/L (0-31); Albumin Level 4.3 g/dL (3.5-5.0); Alkaline Phosphatase 46 U/L (39-117); Anion Gap 15 (12-20); Aspartate Amino Transferase 18 U/L (5-31); Bilirubin Total 0.7 mg/dL (0.0-1.0); Blood Urea Nitrogen 16 mg/dL (9-16); Calcium 9.7 mg/dL (8.4-10.2); Carbon Dioxide 26 mmol/L (22-29); Chloride 105 mmol/L (96-108); Cholesterol 224 mg/dL (<200); Estimated Glomerular Filt Rate > 60; Glucose Fasting 93 mg/dL (60-99); Glucose Random 92 mg/dL (60-115); HDL Cholesterol 75 mg/dL (>40); LDL Cholesterol Calculated 135 mg/dL (<100); Potassium 4.3 mmol/L (3.3-5.1); Sodium 142 mmol/L (135-145); Total Protein 7.5 g/dL (6.5-8.0); Triglycerides 72 mg/dL (<150); Vitamin D 25-OH Total 76.6 ng/mL (>30)
[2024-02-19 18:03] LABS: Levetiracetam Keppra 7.1 mcg/mL (6.0-46.0)
== END 2024-02-16 09:31 | disposition home or self-care (01) ==
LOC: HO.LAB 09:30
PROVIDERS: PCP Internal Medicine; Visit Provider Internal Medicine
DX: R56.9 Unspecified convulsions (principal); E55.9 Vitamin D deficiency, unspecified
CPT/HCPCS: 36415; 80053; 80061; 80177; 82306

== ENCOUNTER 2024-05-10 09:32 | Outpatient (REF) | payer MEDICARE, MEDICAID, SELFPAY | END 2024-05-10 09:33 | disposition home or self-care (01) | LOC: HO.HAP 09:32 | PROVIDERS: Visit Provider Internal Medicine | DX: Z46.1 Encounter for fitting and adjustment of hearing aid (principal); H90.3 Sensorineural hearing loss, bilateral; H61.23 Impacted cerumen, bilateral | CPT/HCPCS: V5266 ==

== ENCOUNTER 2024-07-06 08:48 | Outpatient (REF) | payer MEDICARE, MEDICAID, SELFPAY ==
--- NOTE | 2024-07-07 10:59 | MHC.AU.HA3 ---
Hearing Instrument Follow-Up- Binaural Date of Visit: 07/05/24 Right Ear: Isaak, Model, Color, Serial Number: Neto Hope 70-M SN: [id number] Color: Electric Green Parts Department Manager Repair Warranty: 03/12/2026 Parts Department Manager Loss and Damage Warranty: 03/12/2026 Battery Size: 312 Earmold/Dome/CShell/SlimTip:Microsonic Skeleton molds Dispensed By: [facility] Date of Fittin01/02/2021 Left Ear: Isaak, Model, Color, Serial Number: Neto Hope 70-M SN: [id number] Color: Electric Green Parts Department Manager Repair Warranty: 03/12/2026 Parts Department Manager Loss and Damage Warranty: 03/12/2026 Battery Size: 312 Earmold/Dome/CShell/SlimTip: Microsonic Skeleton Dispensed By: [facility] Date of Fittin01/02/2021 Follow-Up Summary: Dropped off old Wise HAs reporting not working. Tubes occluded with wax. Cleaned both hearing aids and ear molds. Vacuumed microphones. Ran through dehumidifier. Replaced tubing. Listening check demonstrated HAs amplifying clearly. 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 HAs in Repair Drawer. Recommendations:Hearing instrument follow-up or maintenance as needed. Please contact our clinic with any questions or concerns. Diagnosis Code(s): Primary Diagnosis: H90.3 Bilateral Sensorineural Hearing Loss Signature: Provider: Gracie Babin, [facility]
== END 2024-07-06 08:49 | disposition home or self-care (01) ==
LOC: HO.HAP 08:48
PROVIDERS: Visit Provider Internal Medicine
DX: Z13.89 Encounter for screening for other disorder (principal)

== ENCOUNTER 2024-07-12 07:17 | Outpatient (REF) | payer MEDICARE, MEDICAID, SELFPAY ==
--- NOTE | ~2024-07-12 | MR_ITS ---
EXAMINATION: MR BRAIN WITHOUT CONTRAST CLINICAL INFORMATION: Seizure disorder COMPARISON: None available. TECHNIQUE: MRI of the brain was obtained using routine sequences without contrast. FINDINGS: No restricted diffusion. Hippocampi demonstrated no signal abnormality or volume loss. No acute intracranial hemorrhage, mass effect, midline shift, hydrocephalus or herniation. Prominent Virchow-Lucien spaces, right subcapsular. Posterior cranial fossa contents demonstrated no signal abnormality or mass effect. Flow-void signal within the main cerebral vessels is normal demonstrated, prominent right ICA terminus. Sellar/suprasellar region demonstrated a 6 mm and 3 6 slightly hyperintense T1 signal in the sella turcica Craniocervical junction is intact and normal.. MR/MR head/brain wo con IMPRESSION: No acute brain abnormality. Questionable, Rathke cleft cyst, intrasellar Small aneurysm, right ICA terminus cannot be excluded. Recommend MRA brain versus CT angiogram brain. Electronically signed by: Blair Mota MD 08/16/2024 03:35 PM EST
== END 2024-07-12 07:18 | disposition home or self-care (01) ==
LOC: HO.MRI 07:17
PROVIDERS: Visit Provider Psychiatry & Neurology Neurology
DX: G40.909 Epilepsy, unspecified, not intractable, without status epilepticus (principal)
CPT/HCPCS: 70551

== ENCOUNTER → 2024-07-12 07:40 | Outpatient (BNV) | payer MEDICARE, MEDICAID, SELFPAY | PROVIDERS: Visit Provider Radiology Diagnostic Radiology | DX: R56.9 Unspecified convulsions (principal) | CPT/HCPCS: 70551 ==

== ENCOUNTER 2024-07-12 09:50 | Outpatient (REF) | payer MEDICARE, MEDICAID, SELFPAY | END 2024-07-12 09:51 | disposition home or self-care (01) | LOC: HO.HAP 09:50 | PROVIDERS: Visit Provider Internal Medicine | DX: Z46.1 Encounter for fitting and adjustment of hearing aid (principal); H90.3 Sensorineural hearing loss, bilateral | CPT/HCPCS: 92593; 99499 ==

== ENCOUNTER 2024-08-16 07:39 | Outpatient (AMB) | payer MEDICARE, MEDICAID, SELFPAY ==
--- NOTE | 2024-08-16 07:31 | A.OFFPC_ITS ---
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 Accompanied by: Mother Allergies No Known Allergies Allergy (Verified 08/16/24 07:54) Medication List - Last Reconciled 08/16/24 by Gaviota Kenny MD calcium carbonate (Tums) 200 mg PO BID cholecalciferol (vitamin D3) 25 mcg PO DAILY 90 days levetiracetam 250 mg PO DIRECTED levothyroxine 75 mcg PO DAILY omega-3 fatty acids (Fish Oil Concentrate) 1,000 mg PO DAILY varenicline (Tyrvaya) 1 spray intranasal BID Tobacco use date assessed: 02/04/23 Dental Screening Dental Screen Date: 07/07/23 HPI HPI Comments History of Present Illness Details This is a 39-year-old female with Down syndrome that comes accompanied by mother which is the production engineer for follow-up on her conditions. She has neutropenia, autoimmune thyroiditis, seizures and low vitamin-D. Neutropenia was evaluated by Hematology-Oncology which did not find any abnormality. Down syndrome patients tend to have low white blood cells. I autoimmune thyroiditis is follow by Endocrinology and has been stable. Has not had a seizure in over 3 months and this is follow by Neurology. MRI of the brain done but results are still pending. On vitamin-D supplements for her low vitamin-D. Denies any chest pain or shortness on breath. No acute complaints. [facility] Medical History (Updated 08/16/24 @ 08:11 by Gaviota Kenny MD) Visit for pelvic exam Hypovitaminosis D Leukopenia Down syndrome Autoimmune thyroiditis Hearing loss Seizures Surgical History History of placement of ear tubes History of ear surgery Family History Father Melanoma Mother Hyperthyroidism Maternal Grandfather Diabetes CVD (cardiovascular disease) Brother In good health Social History (Updated 08/16/24 @ 07:58 by Gaviota Kenny MD) Household Members: Family Household Members Other:: lives w/her mom Housing: House Alcohol intake: current Alcohol intake frequency: holidays/special occasions only Patient Tobacco Use Status: Never used Tobacco e-Cigarette/Vaping Use: Never Used Second Hand Smoke Exposure: No service: No Current occupational status: employed Current occupational exposures/hazards: No Cognitive needs: No Hearing needs: No Vision needs: Yes Questionnaire Thrive Questionnaire Date Thrive assessed: 08/16/24 I am a: Patient What is your living situation today?: I have a steady place to live Within the past 12 months, did the food you bought not last and you didn't have the money to get more?: Never true Within the past 12 months, did you worry whether your food would run out before you got money to buy more?: Never true Do you have trouble paying for medicines?: No Do you have trouble getting transportation to medical appointments?: No Do you have trouble paying your heating and electricity bill?: No Do you have trouble taking care of your child, family member or friend?: No Do you have trouble with day-to-day activities such as bathing, preparing meals, shopping, managing finances, etc.?: No Are you currently unemployed and looking for a job?: No Are you interested in more education?: No Please select the resources that you would like help with: None Currently or been in a relationship where the following occur: No concerns reported THRIVE Score: 0 AUDIT C Alcohol Use Questionnaire (AUDIT-C) 1. How often do you have a drink containing alcohol?: Monthly or less 2. How many drinks containing alcohol do you have on a typical day when you are drinking?: 1 or 2 3. How often do you have six or more drinks on one occasion?: Never Total Score: 1 Score Reviewed/Action Taken: No JAGRUTI-7 AMB Questionnaire JAGRUTI-7 Date JAGRUTI - 7 assessed: 08/16/24 Feeling nervous, anxious, or on edge: 0 = Not at all Not being able to stop or control worryin = Not at all Worrying too much about different things: 0 = Not at all Trouble relaxin = Not at all Being so restless that it is hard to sit still: 0 = Not at all Becoming easily annoyed or irritable: 0 = Not at all Feeling afraid as if something awful might happen: 0 = Not at all Total JAGRUTI-7 score (0-4 normal; 5-9 mild; 10-14 moderate; 15-21 severe): 0 Source: Developed by Drs. Dustin Bassett, Bette Garcia, Noe Ayala and colleagues, with an educational bree from [employer]. JAGRUTI-7 Assessment Billing JAGRUTI-7 Assessment Tool: JAGRUTI-7 Assessment 22730 Review of Systems Const All systems reviewed & are unremarkable except as noted in HPI and below Card Denies chest pain at rest, Denies chest pain with activity, Denies edema, Denies irregular heart rhythm, Denies claudication, Denies dyspnea, Denies dyspnea on exertion, Denies orthopnea, Denies paroxysmal nocturnal dyspnea and Denies slow heart rate Resp Denies cough, Denies dyspnea and Denies dyspnea on exertion Denies urinary incontinence, Denies urinary hesitancy and Denies urinary urgency Physical exam (Primary Care) Vital Signs: Last Vital Signs BP 102/62 08/16/24 07:47 BMI result Body Mass Index 20.1 Tobacco/Smoking Status: Tobacco use Status Tobacco use date assessed 02/04/23 08/16/24 07:32 Patient Tobacco Use Status Never used Tobacco 08/16/24 07:32 e-Cigarette/Vaping Use Never Used 08/16/24 07:32 Thrive Assessment: Date of Thrive Assessment Date Thrive assessed 08/16/24 08/16/24 07:51 Currently or been in a relationship where the following occur: No concerns reported Resp Effort & Inspection: normal respiratory effort Auscultation: clear to auscultation bilaterally Cardio Jugular venous distension: no JVD Rate: regular rate Rhythm: regular rhythm Heart sounds: S1 normal heart sound present and S2 normal heart sound present Neuro General: no focal motor deficits Extrem General: Yes full ROM Coding Level of Care Code Est Pt Level 4 (43544) Complex EM visit Add On G2211 Diagnoses 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 (2) Hypovitaminosis D: Code(s): E55.9 - Vitamin D deficiency, unspecified Category: Medical Plan: Continue vitamin-D supplements. (3) Autoimmune thyroiditis: Code(s): E06.3 - Autoimmune thyroiditis Category: Medical Plan: Continue levothyroxine. Monitor TSH. Follow-up with endocrinology. (4) Seizures: Code(s): R56.9 - Unspecified convulsions Category: Medical Plan: Continue Keppra. Follow-up with Neurology. Orders: Orders Comprehensive [place]. Panel Fast 6 Months R56.9 - Unspecified convulsions Vitamin D 25-OH Total 6 Months E55.9 - Vitamin D deficiency, unspecified Lipid Panel 6 Months E78.5 - Hyperlipidemia, unspecified
[2024-08-16 07:47] VITALS: BP 102/62; BMI 20.1
== END 2024-08-16 08:06 | disposition home or self-care (01) ==
PROVIDERS: PCP Internal Medicine; Visit Provider Internal Medicine
DX: D70.0 Congenital agranulocytosis (principal); E55.9 Vitamin D deficiency, unspecified; E06.3 Autoimmune thyroiditis; R56.9 Unspecified convulsions

== ENCOUNTER → 2024-08-16 07:39 | Outpatient (BNVA) | payer MEDICARE, MEDICAID, SELFPAY | PROVIDERS: PCP Internal Medicine; Visit Provider Internal Medicine | DX: D70.0 Congenital agranulocytosis (principal); E55.9 Vitamin D deficiency, unspecified; E06.3 Autoimmune thyroiditis; E56.9 Vitamin deficiency, unspecified | CPT/HCPCS: 96127; 99212 ==

== ENCOUNTER 2024-09-13 10:03 | Outpatient (REF) | payer MEDICARE, MEDICAID, SELFPAY ==
--- OUTSIDE RECORDS SUMMARY | 2024-09-14 19:41 | XMS_ITS | Continuity of Care Document ---
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 Onset: 07/01/2022 Social History Type Date Description Comments Sex Unknown Lives With Mother ETOH Use Rarely consumes alcohol Tobacco Use Start: Unknown Patient has never smoked Allergies and adverse reactions Description No Known Drug Allergies Medications Active Medications SIG Qnty Indications Order ing Provider Date Ldyhfvlzddtcx817bt Tablets Take 1/2 Tablet By Mouth Twice A Day Finesse Gonzalez MD Sodium Fluoride 5000 PPM Sensitive1.1-5% Gel [place] Once AT Night Spit Out Excess DO Not Rinse Keep Out Of Reach Of Children Unknown [id number] (1000 Ut) Capsules Take 1 Capsule By Mouth Every Day Gaviota Rocha Levothyroxine Ugawsq48lzc Tablets Take 1 Tablet By Mouth Mon Through Sat Only 72tabs Irene Sanchez M.D. Fish Oil [id number] Capsules 1 by mouth every day Irene Sanchez M.D. Wqwgyfw100sp Tablets 1 by mouth every day 30tabs Irene Sanchez M.D. Vital Signs Date Vital Result Comment 07/21/2023 9:42am BP Systolic 112 mmHg BP Diastolic 58 mmHg Heart Rate 71 /min Height 58 inches 4'10 Weight 101.38 lb BMI (Body Mass Index) 21.2 kg/m2 Results Test Acquired Date Facility Test Result H/L Range [place] Laboratory test finding 10/26/2023 [facility] TSH With Reflex To FT4 <pending> Laboratory test finding 10/26/2023 [facility] TSH With Reflex To FT4 0.43 uIU/mL (0.4-4.2) Laboratory test finding 07/22/2023 [facility] TSH With Reflex To FT4 <pending> Laboratory test finding 07/21/2023 [facility] TSH With Reflex To FT4 6.88 uIU/mL High (0.4-4.2) Free T4 1.32 ng/dL (0.70-1.80 ) Laboratory test finding 07/01/2022 [facility] TSH W/Reflex To Free T4 <pending> Procedures Date Code Description Status 07/21/2023 10312 Collection Of Venous Blood B y Venipuncture Completed Medical Devices Description No Information Available Encounters Type Date Location Provider Dx Diagnosis Office Visit 07/21/2023 10:15a Main Office Irene Sanchez M.D. E03.9 Hypothyroidism, unspecified Assessments Date Code Description Provider 10/26/2023 E03.9 Hypothyroidism, unspecified Irene Sanchez M.D. 07/22/2023 E03.9 Hypothyroidism, unspecified Irene Sanchez M.D. 07/21/2023 E03.9 Hypothyroidism, unspecified Irene Sanchez M.D. Plan of Treatment Future Appointment(s):* 11/09/2024 9:00 am - Irene Sanchez M.D. at Main Office 07/01/2022 - Irene Sanchez M.D.* E03.9 Hypothyroidism, unspecified* New Labs:* TSH W/Reflex To Free T4, Ordered: 07/01/22 Functional Status Description No Information Available Mental Status Description No Information Available Referrals Description No Information Available
== END 2024-09-13 10:04 | disposition home or self-care (01) ==
LOC: HO.HAP 10:03
PROVIDERS: PCP Internal Medicine; Visit Provider Internal Medicine
DX: Z46.1 Encounter for fitting and adjustment of hearing aid (principal); H90.3 Sensorineural hearing loss, bilateral; H61.23 Impacted cerumen, bilateral
CPT/HCPCS: V5266

== ENCOUNTER 2024-12-20 09:46 | Outpatient (REF) | payer MEDICARE, MEDICAID, SELFPAY ==
--- OUTSIDE RECORDS SUMMARY | 2024-12-20 10:56 | XMS_ITS | Clinical Summary ---
Author Organization [facility] Address [address] [place] [address] Phone Care Team Providers Care Chemical Preparer Name Role Phone Georgina Arredondo MD Primary Care Provider Unava ilable Immunizations Immunization Administration Dates Next Due DTP 12/24/1989, 7,01/20/1986,1985,1985 Hep B, ped/adol 07/20/1997,03/20/1997,01/19/1997 Hib (HbOC) 08/10/1987 MMR 01/19/1997,10/13/1986 OPV 12/24/1989, 7,1985,1984 Td (adult) ([facility]), 5 Lf t etanus toxoid, PF, adsorbed 12/17/1998 Family History Relation Name Status Comments Brother Alive Brother: Alive and well Father Alive Father: Cancer - Maternal Grandfather Materna l grandfather: Obesity, Diabetes mellitus Mother Alive Mother: Alive a nd well Paternal Grandmother Paterna l grandmother: Diabetes mellitus, Obesity Social History Tobacco Use Types Packs/Day Years Used Date Smoking Tobacco: Never Assessed Comments Unknown Sex and Gender Information Value Date Recorded Sex Assigned at Not on file Legal Sex Female 4:22 PM EDT Gender Identity Not on file Sexual Orientation Not on file Plan of Treatment Health Maintenance Due Date Last Done Comments Varicella Vaccines (1 of 2 - 13+ 2-dose series) 1998 DTaP,Tdap,and Td Vaccines (6 - Tdap) 12/18/1998 12/17/1998, 12/24/1989, 01/19/1987, Additional history exists Influenza Vaccines (#1) 2024 COVID-19 Vaccine ( season) 2024 HIB Vaccines Completed 08/10/1987 IPV Vaccines Completed 12/24/1989, 01/03, 1985, Additional history exists MMR Vaccines Completed 01/19/1997, 10/13/1986 Hepatitis B Vaccines Completed 07/20/1997, 03/20/1997, 01/19/1997 HPV Vaccines Aged Out No longer eligi ble based on patient's age to complete this topic Hepatitis A Vaccines Aged Out No long er eligible based on patient's age to complete this topic Men B Vaccine Aged Out No longer elig ible based on patient's age to complete this topic Meningococcal Vaccine Aged Out No rahel sintia eligible based on patient's age to complete this topic Pneumococcal Vaccine Aged Out No long er eligible based on patient's age to complete this topic Care Teams Chemical Preparer Relationship Specialty Start Date End Date Georgina Arredondo MD PCP - General 05/15/17
--- OUTSIDE RECORDS SUMMARY | 2024-12-20 10:56 | XMS_ITS | Continuity of Care Document ---
Author Organization [facility] [address] [facility] [address] [place] [address] Phone [phone] Care Team Providers Care Rn Case Management Name Role Phone Gaviota Cuevas MD Care Team Information Receiv er [phone] Gaviota Rocha Care Team Information Foreign Student Adviser [phone] Gaviota Rocha Md Care Team Information Receiv er [phone] Problems Active Problems Provider Date Complete trisomy [...] SIG Qnty Indications Order ing Provider Date Lpqchdqzzkene075xx Tablets Take 1/2 Tablet By Mouth Twice A Day Finesse Gonzalez MD Sodium Fluoride 5000 PPM Sensitive1.1-5% Gel [place] Once AT Night Spit Out Excess DO Not Rinse Keep Out Of Reach Of Children Unknown [id number] (1000 Ut) Capsules Take 1 Capsule By Mouth Every Day Gaviota Rocha Levothyroxine Fpzoal05nho Tablets Take 1 Tablet By Mouth Thursday Through Thursday Only 72tabs Irene Sanchez M.D. Fish Oil [id number] Capsules 1 by mouth every day Irene Sanchez M.D. Xwkjiou128ro Tablets 1 by mouth every day 30tabs Irene Sanchez M.D. Vital Signs Date Vital Result Comment 11/09/2024 9:43am BP Systolic 98 mmHg BP Diastolic 60 mmHg Results Test Acquired Date Facility Test Result H/L Range N ote TSH RFX On Abnormal To Free T4 11/14/2024 [facility] TSH RFX On Abnormal To Free T4 <pending> TSH Rfx on Abnormal to Free T4 11/09/2024 [facility] TSH RFX On Abnormal To Free T4 0.353 uIU/mL Low 0.450-4.50 0 T4,Free (Direct) 1.43 ng/dL 0.82-1.77 TSH With Reflex To FT4 10/26/2023 [facility] TSH With Reflex To FT4 <pending> TSH With Reflex To FT4 10/26/2023 [facility] TSH With Reflex To FT4 0.43 uIU/mL (0.4-4.2) TSH With Reflex To FT4 07/22/2023 [facility] TSH With Reflex To FT4 <pending> TSH With Reflex To FT4 07/21/2023 [facility] TSH With Reflex To FT4 6.88 uIU/mL High (0.4-4.2) Free T4 07/21/2023 [facility] Free T4 1.32 ng/dL (0.70-1.80 ) TSH W/Reflex To Free T4 07/01/2022 [facility] TSH W/Reflex To Free T4 <pending> Procedures Date Code Description Status 11/09/2024 02205 Collection Of Venous Blood B y Venipuncture Completed 07/21/2023 83980 Collection Of Venous Blood B y Venipuncture Completed Medical Devices Description No Information Available Encounters Type Date Location Provider Dx Diagnosis Office Visit 11/09/2024 9:00a Main Office Irene Sanchez M.D. E03.9 Hypothyroidism, unspecified E06.3 Autoimmune thyroidit is Assessments Date Code Description Provider 11/09/2024 E03.9 Hypothyroidism, unspecified Irene Sanchez M.D. 11/09/2024 E06.3 Autoimmune thyroiditis Benson Sanchez M.D. Plan of Treatment Future Appointment(s):* 05/10/2025 9:00 am - Irene Sanchez M.D. at Main Office 07/01/2022 - Irene Sanchez M.D.* E03.9 Hypothyroidism, unspecified* New Labs:* TSH W/Reflex To Free T4, Ordered: 07/01/22 Functional Status Description No Information Available Mental Status Description No Information Available Referrals Description No Information Available
--- OUTSIDE RECORDS SUMMARY | 2024-12-20 10:56 | XMS_ITS | Encounter Summary ---
Author Organization [facility] Address [address] [place] [address] Phone Care Team Providers Care Regulatory Intern Name Role Phone Georgina Arredondo MD Primary Care Provider Unava ilable Encounter Details Date Type Department Care Team (Late st Contact Info) Description 05/21/2017 Conversion Encounter [facility] - [address] [address] Social History Tobacco Use Types Packs/Day Years Used Date Smoking Tobacco: Never Assessed Comments Unknown Sex and Gender Information Value Date Recorded Sex Assigned at Not on file Legal Sex Female 4:22 PM EDT Gender Identity Not on file Sexual Orientation Not on file documented as of this encounter Plan of Treatment Not on file documented as of this encounter Visit Diagnoses Not on filedocumented in this encounter Care Teams Regulatory Intern Relationship Specialty Start Date End Date Georgina Arredondo MD PCP - General 05/15/17 documented as of this encounter
== END 2024-12-20 09:47 | disposition home or self-care (01) ==
LOC: HO.HAP 09:46
PROVIDERS: Visit Provider Internal Medicine
DX: Z46.1 Encounter for fitting and adjustment of hearing aid (principal); H90.3 Sensorineural hearing loss, bilateral; H61.23 Impacted cerumen, bilateral
CPT/HCPCS: V5266

== ENCOUNTER 2025-01-31 09:39 | Outpatient (REF) | payer MEDICARE, MEDICAID, SELFPAY ==
--- OUTSIDE RECORDS SUMMARY | 2025-01-31 10:41 | XMS_ITS | Encounter Summary ---
Author Organization [facility] Address [address] [place] [address] Phone Care Team Providers Care Auditing Clerk Name Role Phone Georgina Arredondo MD Primary Care Provider Unava ilable Encounter Details Date Type Department Care Team (Late st Contact Info) Description 05/21/2017 Conversion Encounter [facility] - [address] [address] Social History Tobacco Use Types Packs/Day Years [...] on filedocumented in this encounter Care Teams Auditing Clerk Relationship Specialty Start Date End Date Georgina Arredondo MD PCP - General 05/15/17 documented as of this encounter
--- OUTSIDE RECORDS SUMMARY | 2025-01-31 10:41 | XMS_ITS | Continuity of Care Document ---
Author Organization [facility] [address] [facility] [address] [place] [address] Phone [phone] Care Team Providers Care Armature Rewinder Name Role Phone Gaviota Cuevas MD Care Team Information Receiv er [phone] Gaviota Rocha Care Team Information Supervisor Volunteer Services [phone] Gaviota Rocha Md Care Team Information Receiv er [phone] Problems Active Problems Provider Date Complete trisomy [...] SIG Qnty Indications Order ing Provider Date Xagssxqntanva877it Tablets Take 1/2 Tablet By Mouth Twice A Day Finesse Gonzalez MD Sodium Fluoride 5000 PPM Sensitive1.1-5% Gel [place] Once AT Night Spit Out Excess DO Not Rinse Keep Out Of Reach Of Children Unknown [id number] (1000 Ut) Capsules Take 1 Capsule By Mouth Every Day Gaviota Rocha Levothyroxine Demkus19vag Tablets Take 1 Tablet By Mouth Thursday Through Thursday Only 72tabs Irene Sanchez M.D. Fish Oil [id number] Capsules 1 by mouth every day Irene Sanchez M.D. Ojjyfir219jq Tablets 1 by mouth every day 30tabs [...] 0.82-1.77 TSH With Reflex To FT4 10/26/2023 [facility] TSH With Reflex To FT4 <pending> TSH With Reflex To FT4 10/26/2023 [facility] TSH With Reflex To FT4 0.43 uIU/mL (0.4-4.2) TSH With Reflex To FT4 07/22/2023 [facility] TSH With Reflex To FT4 <pending> TSH With Reflex To FT4 07/21/2023 [facility] TSH With Reflex To FT4 6.88 uIU/mL High (0.4-4.2) Free T4 07/21/2023 [facility] Free T4 1.32 ng/dL (0.70-1.80 ) TSH W/Reflex To Free T4 07/01/2022 [facility] TSH W/Reflex To Free T4 <pending> Procedures Date Code Description Status 11/09/2024 58645 Collection Of Venous Blood B y Venipuncture Completed 07/21/2023 95777 Collection Of Venous Blood B y Venipuncture [...]
--- OUTSIDE RECORDS SUMMARY | 2025-01-31 10:41 | XMS_ITS | Clinical Summary ---
Author Organization [facility] Address [address] [place] [address] Phone Care Team Providers Care Pipe And Test Supervisor Name Role Phone Georgina Arredondo MD Primary Care Provider Unava ilable Immunizations Immunization Administration Dates Next Due DTP 12/24/1989, 7,01/20/1986,1985,1985 Hep B, ped/adol 07/20/1997,03/20/1997,01/19/1997 Hib (HbOC) 08/10/1987 MMR 01/19/1997,10/13/1986 OPV 12/24/1989, 7,1985,1984 Td (adult) ([facility]), 5 Lf t etanus toxoid, PF, adsorbed [...] age to complete this topic Care Teams Pipe And Test Supervisor Relationship Specialty Start Date End Date Georgina Arredondo MD PCP - General 05/15/17
--- NOTE | 2025-01-31 12:37 | MHC.AU.HA3 ---
Hearing Instrument Follow-Up- Binaural Date of Visit: 01/31/25 Follow-Up Summary: Lisa reports that her right pink Oticon XIAO is not working. Found earmold occluded with wax. Cleaned aid and earmold, re-tubed. Listening check positive. Improvement noted. Recommendations: Recommendations: Hearing instrument follow-up or maintenance as needed. Diagnosis Code(s): Primary Diagnosis: H90.3 Bilateral Sensorineural Hearing Loss Signature: Provider: Gracie Travis, CCC-A
== END 2025-01-31 09:40 | disposition home or self-care (01) ==
LOC: HO.HAP 09:39
PROVIDERS: Visit Provider Internal Medicine
DX: Z46.1 Encounter for fitting and adjustment of hearing aid (principal); H90.3 Sensorineural hearing loss, bilateral
CPT/HCPCS: 92592; 99499

== ENCOUNTER 2025-02-14 07:18 | Outpatient (AMB) | payer MEDICARE, MEDICAID, SELFPAY ==
--- OUTSIDE RECORDS SUMMARY | 2025-02-14 07:20 | XMS_ITS | Encounter Summary ---
Author Organization [facility] Address [address] [place] [address] Phone Care Team Providers Care Reordering Clerk Name Role Phone Georgina Arredondo MD Primary Care Provider Unava ilable Encounter Details Date Type Department Care Team (Late st Contact Info) Description 05/21/2017 Conversion Encounter [facility] - [address] [address] Social History Tobacco Use Types Packs/Day Years [...] on filedocumented in this encounter Care Teams Reordering Clerk Relationship Specialty Start Date End Date Georgina Arredondo MD PCP - General 05/15/17 documented as of this encounter
--- OUTSIDE RECORDS SUMMARY | 2025-02-14 07:20 | XMS_ITS | Continuity of Care Document ---
Author Organization [facility] [address] [place] [address] Phone [phone] Care Team Providers Care Geodesist Name Role Phone Gaviota Cuevas MD Care Team Information Receiv er [phone] Gaviota Rocha Care Team Information Wildlife Science Professor [phone] Gaviota Rocha Md Care Team Information Receiv er [phone] Problems Active Problems Provider Date Complete trisomy [...] SIG Qnty Indications Order ing Provider Date Uhrozxcxhmrdo962wz Tablets Take 1/2 Tablet By Mouth Twice A Day Finesse Gonzalez MD Sodium Fluoride 5000 PPM Sensitive1.1-5% Gel [place] Once AT Night Spit Out Excess DO Not Rinse Keep Out Of Reach Of Children Unknown [id number] (1000 Ut) Capsules Take 1 Capsule By Mouth Every Day Gaviota Rocha Levothyroxine Revtus81kuj Tablets Take 1 Tablet By Mouth Thursday Through Thursday Only 72tabs Irene Sanhcez M.D. Fish Oil [id number] Capsules 1 by mouth every day Irene Sanchez M.D. Odlwwtq864yh Tablets 1 by mouth every day 30tabs [...] 0.82-1.77 TSH With Reflex To FT4 10/26/2023 [facility] TSH With Reflex To FT4 <pending> TSH With Reflex To FT4 10/26/2023 [facility] TSH With Reflex To FT4 0.43 uIU/mL (0.4-4.2) TSH With Reflex To FT4 07/22/2023 [facility] TSH With Reflex To FT4 <pending> TSH With Reflex To FT4 07/21/2023 [facility] TSH With Reflex To FT4 6.88 uIU/mL High (0.4-4.2) Free T4 07/21/2023 [facility] Free T4 1.32 ng/dL (0.70-1.80 ) TSH W/Reflex To Free T4 07/01/2022 [facility] TSH W/Reflex To Free T4 <pending> Procedures Date Code Description Status 11/09/2024 36675 Collection Of Venous Blood B y Venipuncture Completed 07/21/2023 24475 Collection Of Venous Blood B y Venipuncture [...]
--- OUTSIDE RECORDS SUMMARY | 2025-02-14 07:20 | XMS_ITS | Clinical Summary ---
Author Organization [facility] Address [address] [place] [address] Phone Care Team Providers Care Forepart Reducer Name Role Phone Georgina Arredondo MD Primary Care Provider Unava ilable Immunizations Immunization Administration Dates Next Due DTP 12/24/1989, 7,01/20/1986,1985,1985 Hep B, ped/adol 07/20/1997,03/20/1997,01/19/1997 Hib (HbOC) 08/10/1987 MMR 01/19/1997,10/13/1986 OPV 12/24/1989, 7,1985,1984 Td (adult) ([facility]), 5 Lf t etanus toxoid, PF, adsorbed [...] age to complete this topic Care Teams Forepart Reducer Relationship Specialty Start Date End Date Georgina Arredondo MD PCP - General 05/15/17
--- NOTE | 2025-02-14 07:42 | AM.OFFVISMDC ---
Intake Vital Signs 02/14/25 07:45 Height 4 ft 10 in Weight 96 lb 8 oz BMI 20.2 BP 108/70 Blood Pressure Location Lt brachial Position Sitting Intake Visit Reasons: AWV Intake Note: Patient here for an annual wellness visit Ribbon Cleaner Required: No Accompanied by: Mother Allergies No Known Allergies Allergy (Verified 02/14/25 07:54) Medication List - Last Reconciled 02/14/25 by Gaviota Kenny MD calcium carbonate (Tums) 200 mg PO BID cholecalciferol (vitamin D3) 25 mcg PO DAILY 90 days levetiracetam 250 mg PO DIRECTED levothyroxine 75 mcg PO DAILY omega-3 fatty acids (Fish Oil Concentrate) 1,000 mg PO DAILY varenicline tartrate (Tyrvaya) 1 spray intranasal BID HPI HPI Comments History of Present Illness Details The patient is a 39-year-old female with Down Syndrome presenting for a Medicare annual wellness exam. She has Down syndrome and a history of seizure disorder managed by Dr. Gonzalez. 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 Her vaccination status is up to date, and health screenings, including a Pap smear conducted in 2022, returned normal findings. Neutropenia follow by Hematology. She is also receiving care for a thyroid condition under the supervision of endocrinology with regular blood work monitoring and levothyroxine adjustments as needed. Family history reveals melanoma in her father and thyroid and heart disease in her mother. Lifestyle habits include no smoking and rare alcohol consumption limited to special occasions. C.ircle of care updated and reviewed. [facility] handed to patient. - Pap smear completed in 2022 with negative results - Tdap vaccine last received in 2015; next due in 2025 - Regular thyroid monitoring with levothyroxine adjustments - MRI brain last performed at end of last year; recommended further work-up of aneurysm - Routine blood work including thyroid assessment conducted REPLACED BY [facility] Medical History (Updated 02/14/25 @ 08:20 by Gaviota Kenny MD) Visit for pelvic exam Hypovitaminosis D Leukopenia Down syndrome Autoimmune thyroiditis Hearing loss Seizures Surgical History History of placement of ear tubes History of ear surgery Family History Father Melanoma Mother Hyperthyroidism Maternal Grandfather Diabetes CVD (cardiovascular disease) Brother In good health Social History Household Members: Family Household Members Other:: lives w/her mom Housing: House Alcohol intake: current Alcohol intake frequency: holidays/special occasions only Patient Tobacco Use Status: Never used Tobacco e-Cigarette/Vaping Use: Never Used Second Hand Smoke Exposure: No service: No Current occupational status: employed Current occupational exposures/hazards: No Cognitive needs: No Hearing needs: No Vision needs: Yes Questionnaire Medicare Wellness Checkup What gender do you identify with?: female During the past 4 weeks, how much have you been bothered by emotional problems such as feeling anxious, depressed, irritable, sad or downhearted, and blue?: slightly During the past 4 weeks, has your physical & emotional health limited your social activities with family, friends, neighbors, or groups?: not at all During the past 4 weeks, how much bodily pain have you generally had?: no pain During the past 4 weeks, was someone available to help you if you needed & wanted help?: yes, as much as I wanted During the past 4 weeks, what was the hardest physical activity you could do for at least 2 minutes?: light Can you get to places out of walking distance without help? (For eg., can you travel alone on buses, taxis or drive your car?): Yes Can you go shopping for groceries or clothes without someone's help?: Yes Can you prepare your own meals?: Yes Can you do your housework without help?: Yes Because of any health problems, do you need the help of another person with your personal care needs such as eating, bathing, dressing or getting around the house?: No Can you handle your own money without help?: No During the past 4 weeks, how would you rate your health in general?: excellent During the past 4 weeks how have things been going for you?: very well; could hardly better Are you having difficulties driving your car?: not applicable, I don't use a car Do you always fasten your seat belt when you are in a car?: yes, usually During past 4 weeks, have you been bothered by the following: never: Sexual problems?, Trouble eating well?, Teeth or denture problems? and Problems using the telephone? and sometimes: Falling or dizzy when standing up and Tiredness or fatigue? Have you fallen 2 or more times in the past year?: No Are you afraid of falling?: No Are you a smoker?: no During the past 4 weeks, how many drinks of wine, beer, or other alcoholic beverages did you have?: 1 drink or less per week Do you exercise for about 20 minutes 3 or more times a week?: yes, most of the time Have you been given information to help with the following?: yes: Hazards in your house that might hurt you? and yes: Keeping track of your medications? How often do you have trouble taking medicines the way you have been told to take them?: I do not have to take medicine How confident are you that you can control & manage most of your health problems?: somewhat confident What is your race?: White Mini Mental State Exam (MMSE) Orientation What is the (year) (season) (date) (day) (month)?: year, season, date, day and month Where are we (state) (county) (town or city) (hospital) (floor)?: state, county, town or city, hospital/clinic and floor Registration Name of 3 unrelated objects clearly and slowly, then ask patient to repeat all 3 of them. (1st repeat determines score. Make sure they can repeat all three): object 1, object 2 and object 3 Attention & Calculation (CHOOSE ONE) Spell WORLD backwards (DLROW): 0 letters Recall Ask patient to repeat the 3 items from question #3.: object 1 and object 2 Language Show patient a wristwatch & ask what it is. Repeat for pencil.: watch and pencil Ask the patient to repeat the phrase 'No ifs, ands, or buts' after you.: correct Ask the patient to 'take a piece of paper with their right hand' 'fold paper in half' 'place paper on floor': take paper in right hand, fold paper in half and place paper on floor Print the sentence 'CLOSE YOUR EYES' on a piece. If patient actually closes eyes then score.: followed written direction Give patient a blank piece of paper & ask to write a sentence. Score if it contains a noun & verb.: sentence contains subject and verb Score Score: 23 Activity of Daily Living Bathing - sponge bath, tub bath or shower: receives no assistance (gets in/out by self, if usual bathing means Dressing - getting clothes from closets & drawers, including inner/outer garments & fasteners.: gets clothes & gets completely dressed without help Toileting - going to the 'toilet room' for urine/bowel elimination & cleaning self/arranging clothes: goes to toilet room, cleans self, arranges clothes without help Transfer: moves in & out of bed and chair without help (may use support object) Continence: controls urination/bowel movements completely by self Feeding: feeds self without help Total Score: 0 Information obtained from: patient Using telephone: independent Traveling: independent Shopping: independent Preparing meals: needs assistance Housework: needs assistance Taking medicine: independent Managing money: dependent PHQ-9 Over the last 2 weeks, how often have you been bothered by any of the following problems? 1. Little interest or pleasure in doing things: not at all 2. Feeling down, depressed, or hopeless: not at all 3. Trouble falling or staying asleep, or sleeping too much: not at all 4. Feeling tired or having little energy: not at all 5. Poor appetite or overeating: not at all 6. Feeling bad about yourself - or that you are a failure or have let yourself or your family down: not at all 7. Trouble concentrating on things, such as reading the newspaper or watching television: not at all 8. Moving or speaking so slowly that other people could have noticed. Or the opposite - being so fidgety or restless that you have been moving around a lot more than usual: not at all 9. Thoughts that you would be better off or of hurting yourself in some way: not at all Total score: 0 Depression Screening Interpretation: Negative Depression Screening Done: Yes 79967 - PHQ-9 Billing: Yes Source: Developed by Drs. Dustin Bassett, Bette Garcia, Noe Ayala and colleagues, with an educational bree from [employer]. AUDIT C Alcohol Use Questionnaire (AUDIT-C) 1. How often do you have a drink containing alcohol?: Monthly or less 2. How many drinks containing alcohol do you have on a typical day when you are drinking?: 1 or 2 3. How often do you have six or more drinks on one occasion?: Never Total Score: 1 JAGRUTI-7 AMB Questionnaire JAGRUTI-7 Date JAGRUTI - 7 assessed: 02/14/25 Feeling nervous, anxious, or on edge: 0 = Not at all Not being able to stop or control worryin = Not at all Worrying too much about different things: 0 = Not at all Trouble relaxin = Not at all Being so restless that it is hard to sit still: 0 = Not at all Becoming easily annoyed or irritable: 0 = Not at all Feeling afraid as if something awful might happen: 0 = Not at all Total JAGRUTI-7 score (0-4 normal; 5-9 mild; 10-14 moderate; 15-21 severe): 0 Source: Developed by Drs. Dustin Bassett, Bette Garcia, Noe Ayala and colleagues, with an educational bree from [employer]. Thrive Questionnaire Date Thrive assessed: 02/14/25 I am a: Patient What is your living situation today?: I have a steady place to live Within the past 12 months, did the food you bought not last and you didn't have the money to get more?: Never true Within the past 12 months, did you worry whether your food would run out before you got money to buy more?: Never true Do you have trouble paying for medicines?: No Do you have trouble getting transportation to medical appointments?: No Do you have trouble paying your heating and electricity bill?: No Do you have trouble taking care of your child, family member or friend?: No Do you have trouble with day-to-day activities such as bathing, preparing meals, shopping, managing finances, etc.?: No Are you currently unemployed and looking for a job?: No Are you interested in more education?: No Please select the resources that you would like help with: None Currently or been in a relationship where the following occur: No concerns reported THRIVE Score: 0 Review of Systems Const All systems reviewed & are unremarkable except as noted in HPI and below Card Denies chest pain at rest, Denies chest pain with activity, Denies edema, Denies irregular heart rhythm, Denies claudication, Denies dyspnea, Denies dyspnea on exertion, Denies orthopnea, Denies paroxysmal nocturnal dyspnea and Denies slow heart rate Resp Denies cough, Denies dyspnea and Denies dyspnea on exertion GI Denies abdominal pain, Denies change in bowel habits, Denies excessive flatus, Denies nausea and Denies vomiting Denies urinary incontinence, Denies urinary hesitancy and Denies urinary urgency Musc Denies atrophy, Denies deformity and Denies limited range of motion Neuro Denies confusion Psych Denies confusion Physical Exam Vital Signs: Last Vital Signs BP 108/70 02/14/25 07:45 BMI result Body Mass Index 20.2 Const General: No confusion Orientation/consciousness: patient oriented x3 and No confusion Resp Effort & Inspection: normal respiratory effort Auscultation: clear to auscultation bilaterally Cardio Jugular venous distension: no JVD Rate: regular rate Rhythm: regular rhythm Heart sounds: S1 normal heart sound present and S2 normal heart sound present Neuro General: patient oriented x3, no focal motor deficits and No confusion Romberg Test: Negative Extrem General: Yes full ROM Assessment & Plan Assessment & Plan (1) Encounter for Medicare annual wellness exam: Code(s): Z00.00 - Encounter for general adult medical examination without abnormal findings (2) Neutropenia: Code(s): D70.9 - Neutropenia, unspecified Qualifiers: 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 Further evaluation of the small aneurysm at the ICA terminus with MR angiography is recommended. Routine follow-ups with neurology for seizure management and regular health maintenance schedules are to be continued, ensuring her vaccination and wellness screenings are up-to-date. Patient was informed and verbally consented to the use of an ambient scribe for clinic note documentation during this visit. Discussions regarding the identified small aneurysm at the ICA terminus indicated MRA as the next evaluative step, reviewing its importance in precise aneurysm visualization to decide appropriate care measures. The continuance with thyroid monitoring and endocrinology consultation was advised, reflecting on ongoing levothyroxine regulation based on blood results. Additionally, I confirmed her vaccination status and the scheduling of comprehensive checks, reinforcing health maintenance dialogue to ensure optimal well-being. Orders: Orders Lipid Panel Today E78.5 - Hyperlipidemia, unspecified Comprehensive [place]. Panel Fast Today R56.9 - Unspecified convulsions Vitamin D 25-OH Total Today E55.9 - Vitamin D deficiency, unspecified MR angio head wo con Today I67.1 - Cerebral aneurysm, nonruptured Patient Instructions: - Continue levothyroxine as prescribed and regularly follow up with endocrinology. - Schedule MR angiography for further evaluation of aneurysm. - Maintain wellness visits and follow up on general health screenings. - Ensure routine appointments with seizure management provider. - Keep vaccination schedule up to date, with the next Tdap in 2025. 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
[2025-02-14 07:45] VITALS: BP 108/70; BMI 20.2
== END 2025-02-14 08:49 | disposition home or self-care (01) ==
LOC: HO.HMCH 07:19
PROVIDERS: PCP Internal Medicine; Visit Provider Internal Medicine
DX: Z00.00 Encounter for general adult medical examination without abnormal findings (principal); D70.0 Congenital agranulocytosis; R56.9 Unspecified convulsions; I67.1 Cerebral aneurysm, nonruptured

== ENCOUNTER → 2025-02-14 07:18 | Outpatient (BNVA) | payer MEDICARE, MEDICAID, SELFPAY | PROVIDERS: PCP Internal Medicine; Visit Provider Internal Medicine | DX: Z00.00 Encounter for general adult medical examination without abnormal findings (principal); D70.0 Congenital agranulocytosis; R56.9 Unspecified convulsions; I67.1 Cerebral aneurysm, nonruptured | CPT/HCPCS: 96127; 99212 ==

== ENCOUNTER → 2025-02-22 07:16 | Outpatient (BNV) | payer MEDICARE, MEDICAID, SELFPAY | PROVIDERS: PCP Internal Medicine; Visit Provider Radiology Vascular & Interventional Radiology | DX: I67.1 Cerebral aneurysm, nonruptured (principal) | CPT/HCPCS: 70544 ==

== ENCOUNTER 2025-02-22 07:19 | Outpatient (REF) | payer MEDICARE, MEDICAID, SELFPAY ==
--- NOTE | ~2025-02-22 | MR_ITS ---
CLINICAL HISTORY: I67.1 - Cerebral aneurysm, nonruptured MR Angiography head without gadolinium Comparison: None Findings Widely patent intracranial internal carotid arteries. Vertebrobasilar system intact. Anterior, middle, and posterior cerebral arteries are normal. Unremarkable cerebellar arteries. No aneurysm with respect to the previously questioned right ICA terminus aneurysm. There is a questioned tiny (1 mm) aneurysm involving the right posterior cerebral artery on axial images 120 and 121. This is not definitive. IMPRESSION: No aneurysm with respect to the previously questioned right ICA terminus aneurysm. There is a questioned tiny (1 mm) aneurysm involving the right posterior cerebral artery on axial images 120 and 121. This is not definitive. This document has been electronically signed by: Polo Mills MD on 02/22/2025 13:35:20
--- OUTSIDE RECORDS SUMMARY | 2025-02-22 07:21 | XMS_ITS | Clinical Summary ---
Author Organization [facility] Address [address] [place] [phone] Phone Care Team Providers Care Education Counselor Name Role Phone Georgina Arredondo MD Primary Care Provider Unava ilable Immunizations Immunization Administration Dates Next Due DTP 12/24/1989, 7,01/20/1986,1985,1985 Hep B, ped/adol 07/20/1997,03/20/1997,01/19/1997 Hib (HbOC) 08/10/1987 MMR 01/19/1997,10/13/1986 OPV 12/24/1989, 7,1985,1984 Td (adult) ([facility]), 5 Lf t etanus toxoid, [...] age to complete this topic Care Teams Education Counselor Relationship Specialty Start Date End Date Georgina Arreodndo MD PCP - General 05/15/17
--- OUTSIDE RECORDS SUMMARY | 2025-02-22 07:22 | XMS_ITS | Encounter Summary ---
Author Organization [facility] Address [address] [place] [phone] Phone Care Team Providers Care Dope Weigh Operator Name Role Phone Georgina Arredondo MD Primary Care Provider Unava ilable Encounter Details Date Type Department Care Team (Late st Contact Info) Description 05/21/2017 Conversion Encounter [facility] - [address] [address] Social History Tobacco Use Types Packs/Day Years [...] on filedocumented in this encounter Care Teams Dope Weigh Operator Relationship Specialty Start Date End Date Georgina Arredondo MD PCP - General 05/15/17 documented as of this encounter
--- OUTSIDE RECORDS SUMMARY | 2025-02-22 07:22 | XMS_ITS | Continuity of Care Document ---
Author Organization [facility] [address] [place] [address] Phone [phone] Care Team Providers Care Pen Tester Name Role Phone Gaviota Cuevas MD Care Team Information Receiv er [phone] Gaviota Rocha Care Team Information Reaming Machine Operator For Plastic [phone] Gaviota Rocha Md Care Team Information Receiv er [phone] Problems Active Problems Provider Date Complete trisomy [...] SIG Qnty Indications Order ing Provider Date [id number] Tablets Take 1/2 Tablet By Mouth Twice A Day Finesse Gonzalez MD Sodium Fluoride 5000 PPM Sensitive1.1-5% Gel [place] Once AT Night Spit Out Excess DO Not Rinse Keep Out Of Reach Of Children Unknown [id number] (1000 Ut) Capsules Take 1 Capsule By Mouth Every Day Gaviota Rocha Levothyroxine [id number] Tablets Take 1 Tablet By Mouth Thursday Through Thursday Only 72tabs Irene Sanchez M.D. Fish Oil [id number] Capsules 1 by mouth every day Irene Sanchez M.D. [id number] Tablets 1 by mouth every day 30tabs [...] 0.82-1.77 TSH With Reflex To FT4 10/26/2023 [facility] TSH With Reflex To FT4 <pending> TSH With Reflex To FT4 10/26/2023 [facility] TSH With Reflex To FT4 0.43 uIU/mL (0.4-4.2) TSH With Reflex To FT4 07/22/2023 [facility] TSH With Reflex To FT4 <pending> TSH With Reflex To FT4 07/21/2023 [facility] TSH With Reflex To FT4 6.88 uIU/mL High (0.4-4.2) Free T4 07/21/2023 [facility] Free T4 1.32 ng/dL (0.70-1.80 ) TSH W/Reflex To Free T4 07/01/2022 [facility] TSH W/Reflex To Free T4 <pending> Procedures Date Code Description Status 11/09/2024 62924 Collection Of Venous Blood B y Venipuncture Completed 07/21/2023 46882 Collection Of Venous Blood B y Venipuncture [...]
[2025-02-22 09:17] LABS: Alanine Aminotransferase 20 U/L (0-31); Albumin Level 4.2 g/dL (3.5-5.0); Alkaline Phosphatase 49 U/L (39-117); Anion Gap 12 (12-20); Aspartate Amino Transferase 27 U/L (5-31); Bilirubin Total 0.6 mg/dL (0.0-1.0); Blood Urea Nitrogen 15 mg/dL (9-16); Calcium 9.3 mg/dL (8.4-10.2); Carbon Dioxide 27 mmol/L (22-29); Chloride 104 mmol/L (96-108); Cholesterol 244 mg/dL (<200); Estimated Glomerular Filt Rate 58; Glucose Fasting 90 mg/dL (60-99); HDL Cholesterol 75 mg/dL (>40); LDL Cholesterol Calculated 155 mg/dL (<100); Potassium 3.8 mmol/L (3.3-5.1); Sodium 139 mmol/L (135-145); Total Protein 7.4 g/dL (6.5-8.0); Triglycerides 71 mg/dL (<150)
== END 2025-02-22 07:20 | disposition home or self-care (01) ==
LOC: HO.MRI 07:19
PROVIDERS: PCP Internal Medicine; Visit Provider Internal Medicine
DX: I67.1 Cerebral aneurysm, nonruptured (principal); E55.9 Vitamin D deficiency, unspecified; R56.9 Unspecified convulsions; E78.5 Hyperlipidemia, unspecified
CPT/HCPCS: 36415; 70544; 80053; 80061; 82306

== ENCOUNTER 2025-03-28 10:26 | Outpatient (REF) | payer MEDICARE, MEDICAID, SELFPAY ==
--- OUTSIDE RECORDS SUMMARY | 2025-03-28 11:41 | XMS_ITS | Clinical Summary ---
Author Organization [facility] Address [address] [place] [phone] Phone Care Team Providers Care Private Investigator Surveillance Name Role Phone Georgina Arredondo MD Primary Care Provider Unava ilable Immunizations Immunization Administration Dates Next Due DTP 12/24/1989, 7,01/20/1986,1985,1985 Hep B, ped/adol 07/20/1997,03/20/1997,01/19/1997 Hib (HbOC) 08/10/1987 MMR 01/19/1997,10/13/1986 OPV 12/24/1989, 7,1985,1984 Td (adult) ([facility] [place]), 5 Lf t etanus toxoid, PF, adsorbed [...] age to complete this topic Care Teams Private Investigator Surveillance Relationship Specialty Start Date End Date Georgina Arredondo MD PCP - General 05/15/17
== END 2025-03-28 10:27 | disposition home or self-care (01) ==
LOC: HO.HAP 10:26
PROVIDERS: Visit Provider Internal Medicine
DX: Z46.1 Encounter for fitting and adjustment of hearing aid (principal); H90.3 Sensorineural hearing loss, bilateral
CPT/HCPCS: V5266

== ENCOUNTER 2025-05-23 12:29 | Outpatient (REF) | payer MEDICARE, MEDICAID, SELFPAY ==
--- NOTE | 2025-05-23 13:17 | MHC.AU.HA3 ---
Hearing Instrument Follow-Up- Date of Visit: 05/23/25 Follow-Up Summary: Lisa reports her left pink Oticon hearing aid isn't working, says she tried a new battery. Found tube occluded with wax. Cleaned hearing aid (1), cleaned earmold (1), re[place]tubed earmold (1) [place] [address] 3 units. Listening check positive. Lisa reports improvement. Recommendations: Recommendations: Hearing instrument follow-up or maintenance as needed. Diagnosis Code(s): Primary Diagnosis: H90.6 Mixed Hearing Loss, Bilateral Signature: Provider: Gracie Travis, [facility]
--- OUTSIDE RECORDS SUMMARY | 2025-05-23 13:44 | XMS_ITS | Clinical Summary ---
Author Organization [facility] Address [address] [place] [phone] Phone Care Team Providers Care Rig Superintendent Name Role Phone Georgina Arredondo MD Primary Care Provider Unava ilable Immunizations Immunization Administration Dates Next Due DTP 12/24/1989, 7,01/20/1986,1985,1985 Hep B, ped/adol 07/20/1997,03/20/1997,01/19/1997 Hib (HbOC) 08/10/1987 MMR 01/19/1997,10/13/1986 OPV 12/24/1989, 7,1985,1984 Td (adult) ([facility]), 5 Lf t etanus toxoid, PF, [...] 12/18/1998 12/17/1998, 12/24/1989, 01/19/1987, Additional history exists HPV Vaccines (1 - 3-dose SCDM series) 2012 COVID-19 Vaccine ( season) 2024 Influenza Vaccines (#1) 2025 HIB Vaccines Completed 08/10/1987 IPV Vaccines Completed 12/24/1989, 01/03, 1985, Additional history exists MMR Vaccines Completed 01/19/1997, 10/13/1986 Hepatitis B Vaccines Completed 07/20/1997, 03/20/1997, 01/19/1997 Hepatitis A Vaccines Aged Out No long [...] age to complete this topic Care Teams Rig Superintendent Relationship Specialty Start Date End Date Georgina Arredondo MD PCP - General 05/15/17
== END 2025-05-23 12:30 | disposition home or self-care (01) ==
LOC: HO.HAP 12:29
PROVIDERS: Visit Provider Internal Medicine
DX: Z46.1 Encounter for fitting and adjustment of hearing aid (principal); H90.6 Mixed conductive and sensorineural hearing loss, bilateral
CPT/HCPCS: 92592; 99499

== ENCOUNTER 2025-08-01 12:08 | Outpatient (REF) | payer MEDICARE, MEDICAID, SELFPAY ==
--- NOTE | 2025-08-01 13:42 | MHC.AU.CER ---
Cerumen Removal- Binaural Date of Visit: 08/01/25 Walk in. Noted cannot hear from left ear, question wax build up. Otoscopy showed occluding cerumen. Medical Conditions: No Conditions of Concern for Cerumen Removal Medications: No Medications of Concern for Cerumen Removal Procedure: Left Ear: Unusual Findings: No Unusual Findings Prior to Removal: Complete Occlusion Outcome of Procedure: Cerumen was easily removed; All cerumen was removed. Recommendations: Follow-up as needed Diagnosis Code(s): Primary Diagnosis: H90.3 Bilateral Sensorineural Hearing Loss Secondary Diagnosis: H61.23 Impacted Cerumen, Bilateral Signature: Provider: Gracie Babin, [facility]
--- OUTSIDE RECORDS SUMMARY | 2025-08-01 15:29 | XMS_ITS | Encounter Summary ---
Author Organization [facility] Address [address] [place] [phone] Phone Care Team Providers Care Core Drill Operator Name Role Phone Georgina Arredondo MD Primary Care Provider Unava ilable Encounter Details Date Type Department Care Team (Late st Contact Info) Description 05/21/2017 Conversion Encounter [facility] - [address] [address] Social History Tobacco Use Types Packs/Day Years [...] on filedocumented in this encounter Care Teams Core Drill Operator Relationship Specialty Start Date End Date Georgina Arredondo MD PCP - General 05/15/17 documented as of this encounter
--- OUTSIDE RECORDS SUMMARY | 2025-08-01 15:29 | XMS_ITS | Clinical Summary ---
Author Organization [facility] Address [address] [place] [phone] Phone Care Team Providers Care Welt Sewer Name Role Phone Georgina Arredondo MD Primary Care Provider Unava ilable Immunizations Immunization Administration Dates Next Due DTP 12/24/1989, 7,01/20/1986,1985,1985 Hep B, ped/adol 07/20/1997,03/20/1997,01/19/1997 Hib (HbOC) 08/10/1987 MMR 01/19/1997,10/13/1986 OPV 12/24/1989, 7,1985,1984 Td (adult) ([facility]), 5 Lf t etanus toxoid, PF, [...] Vaccines (1 - 3-dose SCDM series) 2012 Influenza Vaccines (#1) 2025 COVID-19 Vaccine ( season) 2025 HIB Vaccines Completed 08/10/1987 IPV Vaccines [...] age to complete this topic Care Teams Welt Sewer Relationship Specialty Start Date End Date Georgina Arredondo MD PCP - General 05/15/17
== END 2025-08-01 12:09 | disposition home or self-care (01) ==
LOC: HO.HAP 12:08
PROVIDERS: Visit Provider Internal Medicine
DX: Z13.89 Encounter for screening for other disorder (principal)

== ENCOUNTER 2025-08-22 10:07 | Outpatient (REF) | payer MEDICARE, MEDICAID, SELFPAY | END 2025-08-22 10:08 | disposition home or self-care (01) | LOC: HO.HAP 10:07 | DX: Z13.89 Encounter for screening for other disorder (principal) ==

== ENCOUNTER 2025-08-23 07:29 | Outpatient (AMB) | payer MEDICARE, MEDICAID, SELFPAY ==
--- NOTE | 2025-08-23 07:56 | A.OFFPC_ITS ---
Vital Signs 08/23/25 07:57 Height 4 ft 10 in Weight 95 lb 6 oz BMI 19.9 BP 122/62 Blood Pressure Location Lt brachial Position Sitting Pulse 58 Pulse Source Pulse Oximeter Pulse Oximetry (%) 98 Oxygen Delivery Method Room Air Intake Visit Reasons: 6 month Manufacturing Worker Required: No Accompanied by: Self / Same As Patient Allergies No Known Allergies Allergy (Verified 08/23/25 08:14) Medication List - Last Reconciled 08/23/25 by Gaviota Kenny MD cholecalciferol (vitamin D3) 25 mcg PO DAILY 90 days levetiracetam 250 mg PO DIRECTED levothyroxine 75 mcg PO DAILY omega-3 fatty acids (Fish Oil Concentrate) 1,000 mg PO DAILY varenicline tartrate (Tyrvaya) 1 spray intranasal BID Tobacco use date assessed: 08/23/25 Dental Screening Dental Screen Date: 08/23/25 Did you have a dental visit in the last 12 months?: Yes Did you have a dental problem in the last 6 months where you did not have access to dental care?: No Was dental information given to patient?: Patient has dentist HPI HPI Comments History of Present Illness Details The patient is a 40-year-old female presenting for an management of chronic conditions. She has no known medication allergies. Her current medications include Keppra 50 mg managed by neurology for seizures, levothyroxine 75 mg managed by endocrinology for hypothyroidism, and vitamin D. She also uses Tyrvaya or Xidra for dry eyes, though not consistently. 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 Her professional development director was reportedly pleased with the last results and recommended a follow-up in one year. She also has a history of elevated cholesterol, but her 10-year [place] coronary risk score is very low at 0.3%. A head MRI was previously performed for symptoms of jumping eyes. While a suspected right ICA aneurysm was ruled out, the scan noted a questionable, tiny 1 mm aneurysm involving the right posterior cerebral artery. Her neurologist, Dr. Dickinson, was not concerned about this finding and did not recommend immediate follow-up imaging. There have been no seizures. The patient reports ongoing knee pain, which is exacerbated by running but does not bother her when walking. She also developed acute back soreness yesterday after attending exercise classes. [facility] Medical History Visit for pelvic exam Hypovitaminosis D Leukopenia Down syndrome Autoimmune thyroiditis Hearing loss Seizures Surgical History History of placement of ear tubes History of ear surgery Family History Father Melanoma Mother Hyperthyroidism Maternal Grandfather Diabetes CVD (cardiovascular disease) Brother In good health Social History Household Members: Family Household Members Other:: lives w/her mom Housing: House Alcohol intake: current Alcohol intake frequency: holidays/special occasions only Patient Tobacco Use Status: Never used Tobacco Tobacco use type: Cigarette e-Cigarette/Vaping Use: Never Used Second Hand Smoke Exposure: No service: No Current occupational status: employed Current occupational exposures/hazards: No Cognitive needs: No Hearing needs: No Vision needs: Yes Questionnaire PHQ-9 Over the last 2 weeks, how often have you been bothered by any of the following problems? 1. Little interest or pleasure in doing things: not at all 2. Feeling down, depressed, or hopeless: not at all 3. Trouble falling or staying asleep, or sleeping too much: not at all 4. Feeling tired or having little energy: not at all 5. Poor appetite or overeating: not at all 6. Feeling bad about yourself - or that you are a failure or have let yourself or your family down: not at all 7. Trouble concentrating on things, such as reading the newspaper or watching television: not at all 8. Moving or speaking so slowly that other people could have noticed. Or the opposite - being so fidgety or restless that you have been moving around a lot more than usual: not at all 9. Thoughts that you would be better off or of hurting yourself in some way: not at all Total score: 0 Depression Screening Interpretation: Negative Depression Screening Done: Yes 65339 - PHQ-9 Billing: Yes Source: Developed by Drs. Dustin Bassett, Bette GarciaNoe and colleagues, with an educational bree from [employer]. Thrive Questionnaire Date Thrive assessed: 02/14/25 I am a: Patient What is your living situation today?: I have a steady place to live Within the past 12 months, did the food you bought not last and you didn't have the money to get more?: Never true Within the past 12 months, did you worry whether your food would run out before you got money to buy more?: Never true Do you have trouble paying for medicines?: No Do you have trouble getting transportation to medical appointments?: No Do you have trouble paying your heating and electricity bill?: No Do you have trouble taking care of your child, family member or friend?: No Do you have trouble with day-to-day activities such as bathing, preparing meals, shopping, managing finances, etc.?: No Are you currently unemployed and looking for a job?: No Are you interested in more education?: No Please select the resources that you would like help with: None Currently or been in a relationship where the following occur: No concerns reported THRIVE Score: 0 AUDIT C Alcohol Use Questionnaire (AUDIT-C) 1. How often do you have a drink containing alcohol?: Never 2. How many drinks containing alcohol do you have on a typical day when you are drinking?: 1 or 2 3. How often do you have six or more drinks on one occasion?: Never Total Score: 0 Score Reviewed/Action Taken: No JAGRUTI-7 AMB Questionnaire JAGRUTI-7 Date JAGRUTI - 7 assessed: 02/14/25 Feeling nervous, anxious, or on edge: 0 = Not at all Not being able to stop or control worryin = Not at all Worrying too much about different things: 0 = Not at all Trouble relaxin = Not at all Being so restless that it is hard to sit still: 0 = Not at all Becoming easily annoyed or irritable: 0 = Not at all Feeling afraid as if something awful might happen: 0 = Not at all Total JAGRUTI-7 score (0-4 normal; 5-9 mild; 10-14 moderate; 15-21 severe): 0 Source: Developed by Drs. Dustin Bassett, Noe Cooper and colleagues, with an educational bree from [employer]. JAGRUTI-7 Assessment Billing JAGRUTI-7 Assessment Tool: JAGRUTI-7 Assessment 36581 Review of Systems Const All systems reviewed & are unremarkable except as noted in HPI and below Card Denies chest pain at rest, Denies chest pain with activity, Denies edema, Denies irregular heart rhythm, Denies claudication, Denies dyspnea, Denies dyspnea on exertion, Denies orthopnea, Denies paroxysmal nocturnal dyspnea and Denies slow heart rate Resp Denies cough, Denies dyspnea and Denies dyspnea on exertion GI Denies abdominal pain, Denies change in bowel habits, Denies excessive flatus, Denies nausea and Denies vomiting Physical exam (Primary Care) Vital Signs: Last Vital Signs Pulse 58 08/23/25 07:57 BP 122/62 08/23/25 07:57 Pulse Ox 98 08/23/25 07:57 Oxygen Delivery Method Room Air 08/23/25 07:57 BMI result Body Mass Index 19.9 Tobacco/Smoking Status: Tobacco use Status Tobacco use date assessed 08/23/25 08/23/25 07:57 Patient Tobacco Use Status Never used Tobacco 08/23/25 07:57 Tobacco use type Cigarette 08/23/25 07:57 e-Cigarette/Vaping Use Never Used 08/23/25 07:57 PHQ-9: PHQ-9 Score PHQ-9: Total score 0 08/23/25 08:16 Depression Screening Interpretation: Negative Thrive Assessment: Date of Thrive Assessment Date Thrive assessed 02/14/25 08/23/25 07:57 Currently or been in a relationship where the following occur: No concerns reported Resp Effort & Inspection: normal respiratory effort Auscultation: clear to auscultation bilaterally Cardio Jugular venous distension: no JVD Rate: regular rate Rhythm: regular rhythm Heart sounds: S1 normal heart sound present and S2 normal heart sound present Extrem General: Yes full ROM Coding Level of Care Code Est Pt Level 4 (80283) Complex EM visit Add On G2211 Diagnoses Autoimmune thyroiditis E06.3 Hypovitaminosis D E55.9 Other neutropenia D70.8 Leukopenia type: neutropenia Neutropenia type: other Seizures R56.9 Additional Codes JAGRUTI-7 Assessment Billing - JAGRUTI-7 Assessment Tool: JAGRUTI-7 Assessment 07106 ([id number]) PHQ-9 - 29698 - PHQ-9 Billing: Yes ([id number]) Time Spent (min) 20 Assessment & Plan Assessment & Plan (1) Autoimmune thyroiditis: Code(s): E06.3 - Autoimmune thyroiditis Category: Medical (2) Hypovitaminosis D: Code(s): E55.9 - Vitamin D deficiency, unspecified Category: Medical (3) Leukopenia: Code(s): D72.819 - Decreased white blood cell count, unspecified Category: Medical Qualifiers: Leukopenia type: neutropenia Neutropenia type: other Qualified Code (s): D70.8 - Other neutropenia (4) Seizures: Code(s): R56.9 - Unspecified convulsions Category: Medical Plan Plan 1. Decreased white blood cell count, unspecified D72.819 The patient's chronic leukopenia is stable and being monitored by hematology, who was satisfied with recent labs. Follow-up with hematology is scheduled in one year. 2. Epilepsy, unspecified, not intractable, without status epilepticus G40.909 HCC 79 The patient's seizure disorder is managed by her neurologist with Keppra. She will continue current management under her neurologist's care. 3. Hypothyroidism, unspecified E03.9 The patient's hypothyroidism is managed by her grade and center marker with levothyroxine. She will continue current management under her grade and center marker's care. 4. Vitamin D deficiency, unspecified E55.9 Continue Vitamin D supplements. Orders: Orders Lipid Panel 6 Months E78.5 - Hyperlipidemia, unspecified Vitamin D 25-OH Total 6 Months E55.9 - Vitamin D deficiency, unspecified MM tomosynthesis screening BI Today Z12.31 - Encounter for screening mammogram for malignant neoplasm of breast Comprehensive [place]. Panel Fast 6 Months R56.9 - Unspecified convulsions
[2025-08-23 07:57] VITALS: BP 122/62; PULSE 58; O2SAT 98; BMI 19.9
--- OUTSIDE RECORDS SUMMARY | 2025-08-23 15:05 | XMS_ITS | Encounter Summary ---
Author Organization [facility] Address [address] [place] [phone] Phone Care Team Providers Care Ingot Stripper Name Role Phone Georgina Arredondo MD Primary Care Provider Unava ilable Encounter Details Date Type Department Care Team (Late st Contact Info) Description 05/21/2017 Conversion Encounter [facility] - [address] [address] Social History Tobacco Use Types Packs/Day Years [...] on filedocumented in this encounter Care Teams Ingot Stripper Relationship Specialty Start Date End Date Georgina Arredondo MD PCP - General 05/15/17 documented as of this encounter
--- OUTSIDE RECORDS SUMMARY | 2025-08-23 15:05 | XMS_ITS | Clinical Summary ---
Author Organization [facility] Address [address] [place] [phone] Phone Care Team Providers Care Watershed Engineer Name Role Phone Georgina Arredondo MD Primary Care Provider Unava ilable Immunizations Immunization Administration Dates Next Due DTP 12/24/1989, 7,01/20/1986,1985,1985 Hep B, ped/adol 07/20/1997,03/20/1997,01/19/1997 Hib (HbOC) 08/10/1987 MMR 01/19/1997,10/13/1986 OPV 12/24/1989, 7,1985,1984 Td (adult) ([facility]), 5 Lf t etanus toxoid, PF, [...] age to complete this topic Care Teams Watershed Engineer Relationship Specialty Start Date End Date Georgina Arredondo MD PCP - General 05/15/17
== END 2025-08-23 08:46 | disposition home or self-care (01) ==
LOC: HO.HMCH 07:30
PROVIDERS: PCP Internal Medicine; Visit Provider Internal Medicine
DX: E06.3 Autoimmune thyroiditis (principal); E55.9 Vitamin D deficiency, unspecified; D70.8 Other neutropenia; R56.9 Unspecified convulsions

== ENCOUNTER → 2025-08-23 07:29 | Outpatient (BNVA) | payer MEDICARE, MEDICAID, SELFPAY | PROVIDERS: PCP Internal Medicine; Visit Provider Internal Medicine | DX: E06.3 Autoimmune thyroiditis (principal); D70.8 Other neutropenia; E55.9 Vitamin D deficiency, unspecified; R56.9 Unspecified convulsions; Z13.31 Encounter for screening for depression | CPT/HCPCS: 96127; 99212 ==

== ENCOUNTER 2025-08-29 10:46 | Outpatient (REF) | payer MEDICARE, MEDICAID, SELFPAY ==
--- OUTSIDE RECORDS SUMMARY | 2025-08-29 13:57 | XMS_ITS | Encounter Summary ---
Author Organization [facility] Address [address] [place] [address] Phone Care Team Providers Care Meat Soaker Name Role Phone Georgina Arredondo MD Primary Care Provider Unava ilable Encounter Details Date Type Department Care Team (Late st Contact Info) Description 05/21/2017 Conversion Encounter [facility] - [address] [address] Social History Tobacco Use Types Packs/Day Years [...] on filedocumented in this encounter Care Teams Meat Soaker Relationship Specialty Start Date End Date Georgina Arredondo MD PCP - General 05/15/17 documented as of this encounter
--- OUTSIDE RECORDS SUMMARY | 2025-08-29 13:57 | XMS_ITS | Clinical Summary ---
Author Organization [facility] Address [address] [place] [address] Phone Care Team Providers Care Primary School Teacher Name Role Phone Georgina Arredondo MD Primary Care Provider Unava ilable Immunizations Immunization Administration Dates Next Due DTP 12/24/1989, 7,01/20/1986,1985,1985 Hep B, ped/adol 07/20/1997,03/20/1997,01/19/1997 Hib (HbOC) 08/10/1987 MMR 01/19/1997,10/13/1986 OPV 12/24/1989, 7,1985,1984 Td (adult) ([facility]), 5 Lf t etanus toxoid, PF, [...] age to complete this topic Care Teams Primary School Teacher Relationship Specialty Start Date End Date Georgina Arredondo MD PCP - General 05/15/17
== END 2025-08-29 10:47 | disposition home or self-care (01) ==
LOC: HO.HAP 10:46
PROVIDERS: Visit Provider Internal Medicine
DX: Z46.1 Encounter for fitting and adjustment of hearing aid (principal)
CPT/HCPCS: V5266

== ENCOUNTER 2025-09-25 10:37 | Outpatient (REF) | payer MEDICARE, MEDICAID, SELFPAY ==
--- OUTSIDE RECORDS SUMMARY | 2025-09-25 13:11 | XMS_ITS | Encounter Summary ---
Author Organization [facility] Address [address] [place] [address] Phone Care Team Providers Care Supervisor Capacitor Processing Name Role Phone Georgina Arredondo MD Primary Care Provider Unava ilable Encounter Details Date Type Department Care Team (Late st Contact Info) Description 05/21/2017 Conversion Encounter [facility] - [address] [address] Social History Tobacco Use Types Packs/Day Years [...] on filedocumented in this encounter Care Teams Supervisor Capacitor Processing Relationship Specialty Start Date End Date Georgina Arredondo MD PCP - General 05/15/17 documented as of this encounter
--- OUTSIDE RECORDS SUMMARY | 2025-09-25 13:11 | XMS_ITS | Clinical Summary ---
Author Organization [facility] Address [address] [place] [phone] Phone Care Team Providers Care Trimming Department Blocker Name Role Phone Georgina Arredondo MD Primary Care Provider Unava ilable Immunizations Immunization Administration Dates Next Due DTP 12/24/1989, 7,01/20/1986,1985,1985 Hep B, ped/adol 07/20/1997,03/20/1997,01/19/1997 Hib (HbOC) 08/10/1987 MMR 01/19/1997,10/13/1986 OPV 12/24/1989, 7,1985,1984 Td (adult) ([facility]), 5 Lf t etanus toxoid, PF, [...] age to complete this topic Care Teams Trimming Department Blocker Relationship Specialty Start Date End Date Georgina Arredondo MD PCP - General 05/15/17
== END 2025-09-25 10:38 | disposition home or self-care (01) ==
LOC: HO.HAP 10:37
PROVIDERS: Visit Provider Internal Medicine
DX: Z46.1 Encounter for fitting and adjustment of hearing aid (principal)
CPT/HCPCS: 92592; 99499